=== PATIENT | male | born 1950 | race Caucasian/White ===

== ENCOUNTER 2018-01-09 16:57 | Inpatient (IN) | payer MEDICARE, MEDICAID ==
[2018-01-09 17:19] LABS: % EOSINOPHILS 1.4 % (0.0-5.0); % LYMPHOCYTES 22.2 % (20.0-50.0); % MONOCYTES 5.1 % (2.0-10.0); % NEUTROPHILS 71.3 % (40.0-80.0); EOSINOPHILE ABSOLUTE 0.1 Th/cmm (0.1-0.4); HEMATOCRIT 38.7 % (41.0-60); LYMPHOCYTE ABSOLUTE 1.4 Th/cmm (1.5-3.0); MEAN CELL VOLUME 88.3 fl (80-99); MEAN CORPUSCULAR HEMOGLOBIN 29.7 pg (27.0-31.0); MEAN CORPUSCULAR HGB CONC 33.7 pg (28.0-36.0); MEAN PLATELET VOLUME 7.5 fl; MONOCYTE ABSOLUTE 0.3 Th/cmm (0.3-1.0); NEUTROPHILE ABSOLUTE 4.7 Th/cmm (1.8-8.0); PLATELET COUNT 212 Th/cmm (150-400); RED BLOOD COUNT 4.39 Mil/cmm (3.80-5.80); RED CELL DISTRIBUTION WIDTH 13.8 % (11.5-20.0); WHITE BLOOD COUNT 6.5 Th/cmm (4.8-10.8)
[2018-01-09 17:37] LABS: ALKALINE PHOSPHATASE 41 U/L (34-104); ANION GAP 8.9 (7.0-16.0); BILIRUBIN,TOTAL 0.2 mg/dL (0.3-1.0); BUN - UREA NITROGEN 16 mg/dL (7-25); CALCIUM SERUM 9.5 mg/dL (8.6-10.3); CARBON DIOXIDE 29.6 mEq/L (21.0-31.0); CHLORIDE 96 mEq/L (98-107); CREATININE - SERUM 0.7 mg/dL (0.7-1.3); GFR AFRICAN-AMERICAN > 60.0 ml/min (>90); GFR NON AFRICAN-AMERICAN > 60.0 ml/min; GLUCOSE 86 mg/dL (70-105); MAGNESIUM 2.1 mg/dL (1.9-2.7); PHOSPHOROUS 3.8 mg/dL (2.5-5.0); POTASSIUM SERUM 4.5 mEq/L (3.5-5.1); SGOT 23 U/L (13-39); SGPT/ALT 14 U/L (7-52); SODIUM SERUM 130 mEq/L (136-145); TOTAL PROTEIN,SERUM 7.9 gm/dL (6.0-8.3)
--- NOTE | 2018-01-09 18:29 | ED Physician Chart ---
ED Chief Complaint/HPI - Patient Information Date Seen:: 01/09/18 Time Seen:: 17:01 Chief Complaint:: increased agitation & hallucinations History of Present Illness:: increased agitation & hallucinations Allergies:: Allergies Allergy/AdvReac Type Severity Reaction Status Date / Time No Known Allergies Allergy Verified 12/29/15 15:28 Vitals:: Vital Signs - 8 hr 01/09/18 17:01 Temp 98.0 F HR 59 RR 19 BP 136/85 O2 Sat % 97 Historian:: Medical Records Review:: Nurse's Note Reviewed, Transfer documents Reviewed ED Review of Systems - Review of Systems General/Constitutional: No fever, No chills, No weight loss, No weakness, No diaphoresis, No edema, No loss of appetite Skin: No skin lesions, No rash, No bruising Head: No headache, No light-headedness Eyes: No loss of vision, No pain, No diplopia ENT: No earache, No nasal drainage, No sore throat, No tinnitus Neck: No neck pain, No swelling, No thyromegaly, No stiffness, No mass noted Cardio Vascular: No chest pain, No palpitations, No PND, No orthopnea, No edema Pulmonary: No SOB, No cough, No sputum, No wheezing GI: No nausea, No vomiting, No diarrhea, No pain, No melena, No hematochezia, No constipation, No hematemesis G/U: No dysuria, No frequency, No hematuria Musculoskeletal: No bone or joint pain, No back pain, No muscle pain Endocrine: No polyuria, No polydipsia Psychiatric: Other (increased agitation and hallucinations) Hematopoietic: No bruising, No lymphadenopathy Allergic/Immuno: No urticaria, No angioedema Neurological: No syncope, No focal symptoms, No weakness, No paresthesia, No headache, No seizure, No dizziness, No confusion, No vertigo ED Past Medical History - Past Medical History Obtainable: No Past Medical History: Asthma/COPD, PUD/GERD, Other (parkinson's; chronic viral hepatitis) Social History: Other (alcohol abuse) Psychiatricy History: Depression, Schizophrenia Family Medical History - Family Member Mother History Unknown: Yes ED Physical Exam - Physical Examination General/Constitutional: Awake, Well-developed, well-nourished, Alert, Ambulatory Other Gen/Cons comments:: irritated at everything. increased agitation. swearing and raising voice. Head: Atraumatic Eyes: Lids, conjuctiva normal, PERRL, EOMI Skin: Nl inspection, No rash, No skin lesions, No ecchymosis, Well hydrated, No lymphadenopathy ENMT: External ears, nose nl, Nasal exam nl Neck: Nontender, Full ROM w/o pain, No JVD, No nuchal rigidity, No bruit, No mass, No stridor Respiratory: Nl effort/Exclusion, Clear to Auscultation, No Wheeze/Rhonchi/Rales Cardio Vascular: RRR, No murmur, gallop, rubs, NL S1 S2 GI: No tenderness/rebounding/guarding, No organomegaly, No hernia, Normal BS's, Nondistended, No mass/bruits, No McBurney tenderness : No CVA tenderness Extremities: No tenderness or effusion, Full ROM, normal strength in all extremities, No edema, Normal digits & nails Neuro/Psych: Alert/oriented, Normal sensory exam, Normal motor strength, Normal gait, No focal deficits Other Neuro/Psych comments:: increased agitation. irritated at everything. raising voice. Misc: Normal back, No paraspinal tenderness ED Labs/Radiology/EKG Results - Lab Results Results: Laboratory Tests 01/09/18 01/09/18 17:12 17:12 WBC 6.5 RBC 4.39 Hgb 13.0 Hct 38.7 L MCV 88.3 MCH 29.7 MCHC Differential 33.7 RDW 13.8 Plt Count 212 MPV 7.5 Neutrophils % 71.3 Lymphocytes % 22.2 Monocytes % 5.1 Eosinophils % 1.4 Basophils % 0.0 Sodium 130 L Potassium 4.5 Chloride 96 L Carbon Dioxide 29.6 Anion Gap 8.9 BUN 16 Creatinine 0.7 Est GFR ( Amer) > 60.0 Est GFR (Non-Af Amer) > 60.0 BUN/Creatinine Ratio 22.9 Glucose 86 Calcium 9.5 Phosphorus 3.8 Magnesium 2.1 Total Bilirubin 0.2 L AST 23 ALT 14 Alkaline Phosphatase 41 Total Protein 7.9 Albumin 4.0 L Globulin 3.9 Albumin/Globulin Ratio 1.0 ED Assessment - Assessment General Assessment: PATIENT IS CLEARED MEDICALLY FOR THE GEROPSYCH UNIT EXCEPT FOR THE FACT THAT WE NEED TO COLLECT A URINE ON HIM. ED Septic Shock - . Is Septic Shock (SBP<90, OR Lactate>4 mmol\L) present?: No - <6hrs of presentation: Vital Signs: Vital Signs - 8 hr 01/09/18 17:01 Temp 98.0 F HR 59 RR 19 BP 136/85 O2 Sat % 97 ED Reassessment (Disposition) - Reassessment Reassessment Condition:: Unchanged - Patient Disposition Discharge/Transfer:: Acute Care w/in this hosp Admitted to:: [facility] Admitting Medical Physician:: Lesvia Ventura Admitting Psych Physician:: Flora Iverson Time:: 18:35 Condition at Disposition:: Stable, Unchanged
[2018-01-09] MEDS ORDERED: Magnesium Hydroxide (MOM) 30 mL UDC PO PRN (19:23)
[2018-01-09 19:34] LABS: URINE SOURCE CLEAN C
[2018-01-09 19:41] LABS: URINE CLARITY CLEAR (CLEAR); URINE COLOR YELLOW
[2018-01-09 19:42] LABS: URINE BILIRUBIN NEGATIVE (NEGATIVE); URINE GLUCOSE (UA) NEGATIVE (NEGATIVE)
[2018-01-09 19:43] LABS: URINE BLOOD NEGATIVE (NEGATIVE); URINE KETONE NEGATIVE (NEGATIVE); URINE LEUKOCYTE ESTERASE NEGATIVE (NEGATIVE); URINE MICROSCOPIC INDICATED? YES; URINE NITRATE NEGATIVE (NEGATIVE); URINE PROTEIN NEGATIVE (NEGATIVE); URINE UROBILINOGEN 0.2 E.U./dL (0.2 - 1.0)
[2018-01-09 19:45] LABS: URINE BACTERIA OCCASIONAL /hpf (NONE SEEN); URINE EPITHELIAL CELLS FEW /lpf (FEW); URINE RBC 0-2 /hpf (0-5)
[2018-01-09 19:57] LABS: AMPHETAMINE URINE NEGATIVE (NEGATIVE); BARBITURATES URINE NEGATIVE (NEGATIVE); BENZODIAZEPINES QUAL URINE NEGATIVE (NEGATIVE); CANNABINOID THC NEGATIVE (NEGATIVE); COCAINE METABOLITE QUAL URINE NEGATIVE (NEGATIVE); METHADONE URINE NEGATIVE (NEGATIVE); METHAMPHETAMINES QUAL URINE NEGATIVE (NEGATIVE); OPIATES (MORPHINE) QUAL. URINE NEGATIVE (NEGATIVE); PHENCYCLIDINE (PCP) URINE NEGATIVE (NEGATIVE); TRICYCLICS (TCA) QUAL. URINE NEGATIVE (NEGATIVE)
[2018-01-09] MEDS ORDERED: Non-Formulary Item 1 EA (Melatonin [Melatonin] 3 MG) PO SCH (21:00)
[2018-01-09 21:58] VITALS: BP 145/76
--- NOTE | 2018-01-09 23:10 | History & Physical ---
ADMIT DATE: 01/09/2018 HISTORY OF PRESENT ILLNESS: The patient is a 67-year-old male with long history of hypertension, degenerative joint disease, and psychosis, admitted to [facility] under Dr. Iverson's service. The patient denies any chest pain, shortness of breath, nausea, vomiting, fever, chills. PAST MEDICAL HISTORY: Significant for portal hypertension, borderline hypertension, degenerative joint disease, and psychosis. PAST SURGICAL HISTORY: No recent surgery. ALLERGIES: None. MEDICATIONS: Follow admission reconciliation. SOCIAL HISTORY: No smoking, no alcohol, no drug. FAMILY HISTORY: Noncontributory. REVIEW OF SYSTEMS: RENAL SYSTEM: No history of renal disorder. CARDIOVASCULAR SYSTEM: He denies any diabetes or thyroid problem. GASTROINTESTINAL SYSTEM: No upper or lower gastrointestinal bleed. NEUROLOGICAL SYSTEM: No seizure disorder. MUSCULOSKELETAL SYSTEM: No muscular dystrophy. HEMATOLOGIC SYSTEM: No bleeding tendencies. RESPIRATORY SYSTEM: No asthma. GENITOURINARY: No dysuria or hematuria. PHYSICAL EXAMINATION: GENERAL: He is awake, alert, oriented. VITAL SIGNS: Temperature 98, heart rate 59, and blood pressure 145/76. HEENT: Normocephalic. Pupils reacting to light and accommodation. Sclerae clear. NECK: Supple. Negative for lymphadenopathy, JVD, or bruit. CHEST: Entry of air bilaterally normal. No rhonchi or wheezing. HEART: S1, S2 normal. No murmur or gallop rhythm. ABDOMEN: Soft, bowel sounds positive. EXTREMITIES: No edema. BACK: No vertebrae tenderness. SKIN: Intact. NEUROLOGIC: He is awake, alert, oriented. No focal motor or sensory deficits. Cranial nerves II through XII is intact. LABORATORY DATA: White blood 6.5, hemoglobin 13, hematocrit 38.7, and platelet is 212. Sodium 130, potassium 4.5, BUN 16, and creatinine 0.7. ASSESSMENT: 1. Hypertension. 2. Hyponatremia. 3. Degenerative joint disease. 4. Dementia. PLAN: The patient admitted to the hospital under Dr. Iverson's service, prompted this hospitalization is psychosis. Medical problems addressed at discharge are hypertension and degenerative joint disease. The patient is medically stable for activity. Thank you Dr. Iverson for asking me to see your patient. The patient is a full code. [facility]# [id number]
[2018-01-10] MEDS: Multivitamin w/ Minerals Tab PO SCH (09:02)
[2018-01-10] MEDS: Vitamin B Complex w/Vitamin C Tab PO SCH (09:02)
--- NOTE | 2018-01-10 13:42 | Psychiatric Evaluation ---
DATE OF SERVICE: 01/09/2018 IDENTIFYING DATA: The patient is a 67-year-old resident of [facility]. Information was obtained by directly interviewing the patient as well as reviewing the admission papers and they are reliable. JUSTIFICATION FOR HOSPITALIZATION: The patient is admitted here in view of his acute psychosis, agitation, and aggressive behavior. CHIEF COMPLAINT: "Hello." HISTORY OF PRESENT ILLNESS: This is one of multiple psychiatric hospitalizations for this patient who was hospitalized here in 2016. The patient has a history of chronic mental illness. The patient at this time is noted to be screaming for 1 minute and the next minute he is saying hello and very hostile and pulling the sheet on his face and then wanted to lie down. The patient's sleep is noted to be poor, appetite is also noted to be poor prior to the hospitalization. PAST PSYCHIATRIC HISTORY: The patient is reported to have been hospitalized on multiple occasions and has been diagnosed with schizophrenia of chronic paranoid type and alcohol abuse. MEDICAL HISTORY: Requested to be done by Dr. Ventura. PHYSICAL EXAMINATION: Requested to be done by Dr. Ventura. SOCIAL HISTORY: Resident of a senior living facility. SUBSTANCE ABUSE HISTORY: The patient has a history of alcohol problems in the past. LEGAL PROBLEMS: None at this time. STRENGTH AND ASSETS: The patient is motivated. MENTAL STATUS EXAMINATION: The patient is a 67-year-old, looking his stated age, superficially cooperative. Eye contact is poor. Mood is noted to be irritable. Affect is constricted. The patient's insight and judgment are noted to be very much impaired. The patient has paranoia and is responding to internal stimuli. The patient is reported to have been very aggressive and agitated and could not be redirected. The patient is alert and aware that he is in the hospital. The patient does not believe that he needs to be on the medications. The patient has no insight into his illness. DIAGNOSES: AXIS IA: Schizophrenia, chronic paranoid type. AXIS IB: Alcohol abuse. AXIS II: None. AXIS III: As per Dr. Ventura. IMMEDIATE TREATMENT PLAN: The patient is going to be observed on inpatient unit, provided with supportive psychotherapy. The patient is going to be closely monitored. Once stabilized, the patient is going to be discharged. The patient is going to be continued with the current medication such as Seroquel and the patient is going to be added with Depakote. He is going to be followed up with the supportive therapy. Once stabilized, the patient is going to be discharged to self to be followed up on an outpatient basis. ESTIMATED LENGTH OF STAY: 5-7 days. DISCHARGE CRITERIA: No longer a threat to self or others and be able to cope up with the stress. [facility]# [id number]
--- NOTE | 2018-01-10 17:08 | General Progress Note ---
Subjective - Review of Systems Service Date: 01/10/18 Subjective: resting comfortably no distress Objective - Results Result Diagrams: 01/09/18 17:12 01/09/18 17:12 Recent Labs: Laboratory Last Values WBC 6.5 Th/cmm (4.8-10.8) 01/09/18 17:12 RBC 4.39 Mil/cmm (3.80-5.80) 01/09/18 17:12 Hgb 13.0 gm/dL (12-16) 01/09/18 17:12 Hct 38.7 % (41.0-60) L 01/09/18 17:12 MCV 88.3 fl (80-99) 01/09/18 17:12 MCH 29.7 pg (27.0-31.0) 01/09/18 17:12 MCHC Differential 33.7 pg (28.0-36.0) 01/09/18 17:12 RDW 13.8 % (11.5-20.0) 01/09/18 17:12 Plt Count 212 Th/cmm (150-400) 01/09/18 17:12 MPV 7.5 fl 01/09/18 17:12 Neutrophils % 71.3 % (40.0-80.0) 01/09/18 17:12 Lymphocytes % 22.2 % (20.0-50.0) 01/09/18 17:12 Monocytes % 5.1 % (2.0-10.0) 01/09/18 17:12 Eosinophils % 1.4 % (0.0-5.0) 01/09/18 17:12 Basophils % 0.0 % (0.0-2.0) 01/09/18 17:12 Sodium 130 mEq/L (136-145) L 01/09/18 17:12 Potassium 4.5 mEq/L (3.5-5.1) 01/09/18 17:12 Chloride 96 mEq/L (98-107) L 01/09/18 17:12 Carbon Dioxide 29.6 mEq/L (21.0-31.0) 01/09/18 17:12 Anion Gap 8.9 (7.0-16.0) 01/09/18 17:12 BUN 16 mg/dL (7-25) 01/09/18 17:12 Creatinine 0.7 mg/dL (0.7-1.3) 01/09/18 17:12 Est GFR ( Amer) > 60.0 ml/min (>90) 01/09/18 17:12 Est GFR (Non-Af Amer) > 60.0 ml/min 01/09/18 17:12 BUN/Creatinine Ratio 22.9 01/09/18 17:12 Glucose 86 mg/dL (70-105) 01/09/18 17:12 Calcium 9.5 mg/dL (8.6-10.3) 01/09/18 17:12 Phosphorus 3.8 mg/dL (2.5-5.0) 01/09/18 17:12 Magnesium 2.1 mg/dL (1.9-2.7) 01/09/18 17:12 Total Bilirubin 0.2 mg/dL (0.3-1.0) L 01/09/18 17:12 AST 23 U/L (13-39) 01/09/18 17:12 ALT 14 U/L (7-52) 01/09/18 17:12 Alkaline Phosphatase 41 U/L (34-104) 01/09/18 17:12 Total Protein 7.9 gm/dL (6.0-8.3) 01/09/18 17:12 Albumin 4.0 gm/dL (4.2-5.5) L 01/09/18 17:12 Globulin 3.9 gm/dL 01/09/18 17:12 Albumin/Globulin Ratio 1.0 (1.0-1.8) 01/09/18 17:12 Urine Source CLEAN C 01/09/18 19:10 Urine Color YELLOW 01/09/18 19:10 Urine Clarity CLEAR (CLEAR) 01/09/18 19:10 Urine pH 7.0 (4.6 - 8.0) 01/09/18 19:10 Ur Specific [place] 1.015 (1.005-1.030) 01/09/18 19:10 Urine Protein NEGATIVE mg/dL (NEGATIVE) 01/09/18 19:10 Urine Glucose (UA) NEGATIVE mg/dL (NEGATIVE) 01/09/18 19:10 Urine Ketones NEGATIVE mg/dL (NEGATIVE) 01/09/18 19:10 Urine Blood NEGATIVE (NEGATIVE) 01/09/18 19:10 Urine Nitrate NEGATIVE (NEGATIVE) 01/09/18 19:10 Urine Bilirubin NEGATIVE (NEGATIVE) 01/09/18 19:10 Urine Urobilinogen 0.2 E.U./dL (0.2 - 1.0) 01/09/18 19:10 Ur Leukocyte Esterase NEGATIVE (NEGATIVE) 01/09/18 19:10 Urine RBC 0-2 /hpf (0-5) H 01/09/18 19:10 Urine WBC 2-5 /hpf (0-5) 01/09/18 19:10 Ur Epithelial Cells FEW /lpf (FEW) 01/09/18 19:10 Urine Bacteria OCCASIONAL /hpf (NONE SEEN) 01/09/18 19:10 Urine Mucus FEW /lpf (FEW) 01/09/18 19:10 Urine Opiates Screen NEGATIVE (NEGATIVE) 01/09/18 19:10 Urine Methadone Screen NEGATIVE (NEGATIVE) 01/09/18 19:10 Ur Barbiturates Screen NEGATIVE (NEGATIVE) 01/09/18 19:10 Ur Tricyclics Screen NEGATIVE (NEGATIVE) 01/09/18 19:10 Ur Phencyclidine Scrn NEGATIVE (NEGATIVE) 01/09/18 19:10 Amphetamines Screen NEGATIVE (NEGATIVE) 01/09/18 19:10 U Methamphetamines Scrn NEGATIVE (NEGATIVE) 01/09/18 19:10 U Benzodiazepines Scrn NEGATIVE (NEGATIVE) 01/09/18 19:10 U Cocaine Metab Screen NEGATIVE (NEGATIVE) 01/09/18 19:10 U Cannabinoids Screen NEGATIVE (NEGATIVE) 01/09/18 19:10 - Physical Exam Vitals and I&O: Vital Signs Temp 99.0 F 01/10/18 14:00 Pulse 73 01/10/18 14:00 Resp 19 01/10/18 14:00 BP 122/61 01/10/18 14:00 Pulse Ox 96 01/10/18 14:00 Intake & Output 01/09/18 01/10/18 01/10/18 18:59 06:59 18:59 Intake Total 540 Output Total 500 Balance 40 Weight (lbs) 77.111 kg 77.111 kg Intake: Oral 540 Output: Urine 500 Other: # Voids 2 Weight Source Estimated Patient stated Active Medications: Current Medications Acetaminophen (Tylenol) 650 mg PO Q4HR PRN PRN Reason: Pain Stop: 03/10/18 19:22 Docusate Sodium (Colace) 100 mg PO BID HEATHER Stop: 03/11/18 08:59 Last Admin: 01/10/18 16:52 Dose: 100 mg Famotidine (Pepcid) 20 mg PO BID HEATHER Stop: 03/11/18 08:59 Last Admin: 01/10/18 16:52 Dose: 20 mg Lorazepam (Ativan) 0.5 mg PO Q4H PRN; Protocol PRN Reason: Anxiety Stop: 03/10/18 22:40 Magnesium Hydroxide (Milk Of Magnesia) 30 ml PO DAILY PRN PRN Reason: Constipation Stop: 03/10/18 19:22 Vitamin B Complex/Vit C/Folic Acid (Vitamin B Complex W/Vitamin C) 1 tab PO DAILY HEATHER Stop: 03/11/18 08:59 Last Admin: 01/10/18 09:02 Dose: 1 tab Zolpidem Tartrate (Ambien) 5 mg PO HS PRN PRN Reason: Insomnia Stop: 03/10/18 22:40 General: No acute distress HEENT: Atraumatic, PERRLA Neck: Supple, JVD, Thyromegaly Cardiovascular: Regular rate, Normal S1, Normal S2 Lungs: Clear to auscultation Abdomen: Bowel sounds, Soft - Procedures Procedures: Procedures Procedure Code Date GROUP PSYCHOTHERAPY 56129 04/26/15 GROUP PSYCHOTHERAPY GZHZZZZ 04/26/15 Assessment/Plan - Problem List Patient Problems: All Active Problems AGGITATION AND UNCOOPERATIVE WITH CARE (Acute) - Assessment Assessment: 1.HTN. 2.DJD. 3.CONSTIPATION. 4.DEMENTIA. - Plan Plan: CONTINUE CURRENT TREATMENT
[2018-01-11] MEDS: Vitamin B Complex w/Vitamin C Tab PO SCH (09:14)
[2018-01-11] MEDS: Multivitamin w/ Minerals Tab PO SCH (09:14)
--- NOTE | 2018-01-11 20:31 | General Progress Note ---
Subjective - Review of Systems Service Date: 01/11/18 Subjective: resting comfortably no distress Objective - Results Result Diagrams: 01/09/18 17:12 01/09/18 17:12 Recent Labs: Laboratory Last Values WBC 6.5 Th/cmm (4.8-10.8) 01/09/18 17:12 RBC 4.39 Mil/cmm (3.80-5.80) 01/09/18 17:12 Hgb 13.0 gm/dL (12-16) 01/09/18 17:12 Hct 38.7 % (41.0-60) L 01/09/18 17:12 MCV 88.3 fl (80-99) 01/09/18 17:12 MCH 29.7 pg (27.0-31.0) 01/09/18 17:12 MCHC Differential 33.7 pg (28.0-36.0) 01/09/18 17:12 RDW 13.8 % (11.5-20.0) 01/09/18 17:12 Plt Count 212 Th/cmm (150-400) 01/09/18 17:12 MPV 7.5 fl 01/09/18 17:12 Neutrophils % 71.3 % (40.0-80.0) 01/09/18 17:12 Lymphocytes % 22.2 % (20.0-50.0) 01/09/18 17:12 Monocytes % 5.1 % (2.0-10.0) 01/09/18 17:12 Eosinophils % 1.4 % (0.0-5.0) 01/09/18 17:12 Basophils % 0.0 % (0.0-2.0) 01/09/18 17:12 Sodium 130 mEq/L (136-145) L 01/09/18 17:12 Potassium 4.5 mEq/L (3.5-5.1) 01/09/18 17:12 Chloride 96 mEq/L (98-107) L 01/09/18 17:12 Carbon Dioxide 29.6 mEq/L (21.0-31.0) 01/09/18 17:12 Anion Gap 8.9 (7.0-16.0) 01/09/18 17:12 BUN 16 mg/dL (7-25) 01/09/18 17:12 Creatinine 0.7 mg/dL (0.7-1.3) 01/09/18 17:12 Est GFR ( Amer) > 60.0 ml/min (>90) 01/09/18 17:12 Est GFR (Non-Af Amer) > 60.0 ml/min 01/09/18 17:12 BUN/Creatinine Ratio 22.9 01/09/18 17:12 Glucose 86 mg/dL (70-105) 01/09/18 17:12 Calcium 9.5 mg/dL (8.6-10.3) 01/09/18 17:12 Phosphorus 3.8 mg/dL (2.5-5.0) 01/09/18 17:12 Magnesium 2.1 mg/dL (1.9-2.7) 01/09/18 17:12 Total Bilirubin 0.2 mg/dL (0.3-1.0) L 01/09/18 17:12 AST 23 U/L (13-39) 01/09/18 17:12 ALT 14 U/L (7-52) 01/09/18 17:12 Alkaline Phosphatase 41 U/L (34-104) 01/09/18 17:12 Total Protein 7.9 gm/dL (6.0-8.3) 01/09/18 17:12 Albumin 4.0 gm/dL (4.2-5.5) L 01/09/18 17:12 Globulin 3.9 gm/dL 01/09/18 17:12 Albumin/Globulin Ratio 1.0 (1.0-1.8) 01/09/18 17:12 Urine Source CLEAN C 01/09/18 19:10 Urine Color YELLOW 01/09/18 19:10 Urine Clarity CLEAR (CLEAR) 01/09/18 19:10 Urine pH 7.0 (4.6 - 8.0) 01/09/18 19:10 Ur Specific [place] 1.015 (1.005-1.030) 01/09/18 19:10 Urine Protein NEGATIVE mg/dL (NEGATIVE) 01/09/18 19:10 Urine Glucose (UA) NEGATIVE mg/dL (NEGATIVE) 01/09/18 19:10 Urine Ketones NEGATIVE mg/dL (NEGATIVE) 01/09/18 19:10 Urine Blood NEGATIVE (NEGATIVE) 01/09/18 19:10 Urine Nitrate NEGATIVE (NEGATIVE) 01/09/18 19:10 Urine Bilirubin NEGATIVE (NEGATIVE) 01/09/18 19:10 Urine Urobilinogen 0.2 E.U./dL (0.2 - 1.0) 01/09/18 19:10 Ur Leukocyte Esterase NEGATIVE (NEGATIVE) 01/09/18 19:10 Urine RBC 0-2 /hpf (0-5) H 01/09/18 19:10 Urine WBC 2-5 /hpf (0-5) 01/09/18 19:10 Ur Epithelial Cells FEW /lpf (FEW) 01/09/18 19:10 Urine Bacteria OCCASIONAL /hpf (NONE SEEN) 01/09/18 19:10 Urine Mucus FEW /lpf (FEW) 01/09/18 19:10 Urine Opiates Screen NEGATIVE (NEGATIVE) 01/09/18 19:10 Urine Methadone Screen NEGATIVE (NEGATIVE) 01/09/18 19:10 Ur Barbiturates Screen NEGATIVE (NEGATIVE) 01/09/18 19:10 Ur Tricyclics Screen NEGATIVE (NEGATIVE) 01/09/18 19:10 Ur Phencyclidine Scrn NEGATIVE (NEGATIVE) 01/09/18 19:10 Amphetamines Screen NEGATIVE (NEGATIVE) 01/09/18 19:10 U Methamphetamines Scrn NEGATIVE (NEGATIVE) 01/09/18 19:10 U Benzodiazepines Scrn NEGATIVE (NEGATIVE) 01/09/18 19:10 U Cocaine Metab Screen NEGATIVE (NEGATIVE) 01/09/18 19:10 U Cannabinoids Screen NEGATIVE (NEGATIVE) 01/09/18 19:10 - Physical Exam Vitals and I&O: Vital Signs Temp 98.7 F 01/11/18 20:10 Pulse 66 01/11/18 20:10 Resp 18 01/11/18 20:10 BP 119/76 01/11/18 20:10 Pulse Ox 98 01/11/18 20:10 Intake & Output 01/11/18 01/11/18 01/12/18 06:59 18:59 06:59 Intake Total 1600 240 Balance 1600 240 Intake: Oral 1600 240 Other: # Voids 3 2 # Bowel Movements 0 Active Medications: Current Medications Acetaminophen (Tylenol) 650 mg PO Q4HR PRN PRN Reason: Pain Stop: 03/10/18 19:22 Last Admin: 01/10/18 20:18 Dose: 650 mg Docusate Sodium (Colace) 100 mg PO BID HEATHER Stop: 03/11/18 08:59 Last Admin: 01/11/18 18:34 Dose: Not Given Famotidine (Pepcid) 20 mg PO BID HEATHER Stop: 03/11/18 08:59 Last Admin: 01/11/18 18:34 Dose: Not Given Lorazepam (Ativan) 0.5 mg PO Q4H PRN; Protocol PRN Reason: Anxiety Stop: 03/10/18 22:40 Magnesium Hydroxide (Milk Of Magnesia) 30 ml PO DAILY PRN PRN Reason: Constipation Stop: 03/10/18 19:22 Olanzapine (Zyprexa) 5 mg PO HS HEATHER; Protocol Stop: 03/12/18 20:59 Vitamin B Complex/Vit C/Folic Acid (Vitamin B Complex W/Vitamin C) 1 tab PO DAILY HEATHER Stop: 03/11/18 08:59 Last Admin: 01/11/18 09:14 Dose: 1 tab Zolpidem Tartrate (Ambien) 5 mg PO HS PRN PRN Reason: Insomnia Stop: 03/10/18 22:40 General: No acute distress HEENT: Atraumatic, PERRLA Neck: Supple, JVD, Thyromegaly Cardiovascular: Regular rate, Normal S1, Normal S2 Lungs: Clear to auscultation Abdomen: Bowel sounds, Soft - Procedures Procedures: Procedures Procedure Code Date GROUP PSYCHOTHERAPY 88965 04/26/15 GROUP PSYCHOTHERAPY GZHZZZZ 04/26/15 Assessment/Plan - Problem List Patient Problems: All Active Problems AGGITATION AND UNCOOPERATIVE WITH CARE (Acute) - Assessment Assessment: 1.HTN. 2.DJD. 3.CONSTIPATION. 4.DEMENTIA. - Plan Plan: CONTINUE CURRENT TREATMENT
--- NOTE | 2018-01-12 03:01 | Progress Notes ---
DATE: 01/11/2018 SUBJECTIVE: Staff was spoken to. The patient is interviewed. Mood is noted to be irritable. Affect is constricted. Insight and judgment are noted to be still impaired. The patient is getting easily frustrated. The patient is screaming and yelling when the staff are asking him for anything. The patient has no insight into his illness. ASSESSMENT: The patient is still impulsive and psychotic. PLAN: To continue the patient with low dose of the Zyprexa, which is going to be given at 5 mg and follow up with the supportive therapy. The patient is not ready to be discharged to a lower level of care in view of his psychosis and impulsivity. JOB# [id number]
[2018-01-12] MEDS: Vitamin B Complex w/Vitamin C Tab PO SCH (08:56)
[2018-01-12] MEDS: Multivitamin w/ Minerals Tab PO SCH (08:56)
--- NOTE | 2018-01-12 18:02 | Progress Notes ---
DATE: 01/12/2018 SUBJECTIVE: Staff was spoken to. The patient is interviewed. Mood is noted to be dysphoric. Coping skills are noted to be very poor. The patient is refusing to take the vitamins. The patient is keeping to himself and verbalizations are noted to be very minimal. The patient is getting easily frustrated. ASSESSMENT: The patient is still psychotic. PLAN: To continue the patient with the current medications and followup. JOB# [id number]
--- NOTE | 2018-01-12 19:53 | Internal Medicine Prog Note ---
Internal Medicine Subjective - Subjective Service Date: 01/12/18 Patient seen and examined:: with staff Patient is:: awake, verbal, confused Per staff patient has:: no adverse event Internal Medicine Objective - Results Result Diagrams: 01/09/18 17:12 01/09/18 17:12 Recent Labs: Laboratory Last Values WBC 6.5 Th/cmm (4.8-10.8) 01/09/18 17:12 RBC 4.39 Mil/cmm (3.80-5.80) 01/09/18 17:12 Hgb 13.0 gm/dL (12-16) 01/09/18 17:12 Hct 38.7 % (41.0-60) L 01/09/18 17:12 MCV 88.3 fl (80-99) 01/09/18 17:12 MCH 29.7 pg (27.0-31.0) 01/09/18 17:12 MCHC Differential 33.7 pg (28.0-36.0) 01/09/18 17:12 RDW 13.8 % (11.5-20.0) 01/09/18 17:12 Plt Count 212 Th/cmm (150-400) 01/09/18 17:12 MPV 7.5 fl 01/09/18 17:12 Neutrophils % 71.3 % (40.0-80.0) 01/09/18 17:12 Lymphocytes % 22.2 % (20.0-50.0) 01/09/18 17:12 Monocytes % 5.1 % (2.0-10.0) 01/09/18 17:12 Eosinophils % 1.4 % (0.0-5.0) 01/09/18 17:12 Basophils % 0.0 % (0.0-2.0) 01/09/18 17:12 Sodium 130 mEq/L (136-145) L 01/09/18 17:12 Potassium 4.5 mEq/L (3.5-5.1) 01/09/18 17:12 Chloride 96 mEq/L (98-107) L 01/09/18 17:12 Carbon Dioxide 29.6 mEq/L (21.0-31.0) 01/09/18 17:12 Anion Gap 8.9 (7.0-16.0) 01/09/18 17:12 BUN 16 mg/dL (7-25) 01/09/18 17:12 Creatinine 0.7 mg/dL (0.7-1.3) 01/09/18 17:12 Est GFR ( Amer) > 60.0 ml/min (>90) 01/09/18 17:12 Est GFR (Non-Af Amer) > 60.0 ml/min 01/09/18 17:12 BUN/Creatinine Ratio 22.9 01/09/18 17:12 Glucose 86 mg/dL (70-105) 01/09/18 17:12 Calcium 9.5 mg/dL (8.6-10.3) 01/09/18 17:12 Phosphorus 3.8 mg/dL (2.5-5.0) 01/09/18 17:12 Magnesium 2.1 mg/dL (1.9-2.7) 01/09/18 17:12 Total Bilirubin 0.2 mg/dL (0.3-1.0) L 01/09/18 17:12 AST 23 U/L (13-39) 01/09/18 17:12 ALT 14 U/L (7-52) 01/09/18 17:12 Alkaline Phosphatase 41 U/L (34-104) 01/09/18 17:12 Total Protein 7.9 gm/dL (6.0-8.3) 01/09/18 17:12 Albumin 4.0 gm/dL (4.2-5.5) L 01/09/18 17:12 Globulin 3.9 gm/dL 01/09/18 17:12 Albumin/Globulin Ratio 1.0 (1.0-1.8) 01/09/18 17:12 Urine Source CLEAN C 01/09/18 19:10 Urine Color YELLOW 01/09/18 19:10 Urine Clarity CLEAR (CLEAR) 01/09/18 19:10 Urine pH 7.0 (4.6 - 8.0) 01/09/18 19:10 Ur Specific [place] 1.015 (1.005-1.030) 01/09/18 19:10 Urine Protein NEGATIVE mg/dL (NEGATIVE) 01/09/18 19:10 Urine Glucose (UA) NEGATIVE mg/dL (NEGATIVE) 01/09/18 19:10 Urine Ketones NEGATIVE mg/dL (NEGATIVE) 01/09/18 19:10 Urine Blood NEGATIVE (NEGATIVE) 01/09/18 19:10 Urine Nitrate NEGATIVE (NEGATIVE) 01/09/18 19:10 Urine Bilirubin NEGATIVE (NEGATIVE) 01/09/18 19:10 Urine Urobilinogen 0.2 E.U./dL (0.2 - 1.0) 01/09/18 19:10 Ur Leukocyte Esterase NEGATIVE (NEGATIVE) 01/09/18 19:10 Urine RBC 0-2 /hpf (0-5) H 01/09/18 19:10 Urine WBC 2-5 /hpf (0-5) 01/09/18 19:10 Ur Epithelial Cells FEW /lpf (FEW) 01/09/18 19:10 Urine Bacteria OCCASIONAL /hpf (NONE SEEN) 01/09/18 19:10 Urine Mucus FEW /lpf (FEW) 01/09/18 19:10 Urine Opiates Screen NEGATIVE (NEGATIVE) 01/09/18 19:10 Urine Methadone Screen NEGATIVE (NEGATIVE) 01/09/18 19:10 Ur Barbiturates Screen NEGATIVE (NEGATIVE) 01/09/18 19:10 Ur Tricyclics Screen NEGATIVE (NEGATIVE) 01/09/18 19:10 Ur Phencyclidine Scrn NEGATIVE (NEGATIVE) 01/09/18 19:10 Amphetamines Screen NEGATIVE (NEGATIVE) 01/09/18 19:10 U Methamphetamines Scrn NEGATIVE (NEGATIVE) 01/09/18 19:10 U Benzodiazepines Scrn NEGATIVE (NEGATIVE) 01/09/18 19:10 U Cocaine Metab Screen NEGATIVE (NEGATIVE) 01/09/18 19:10 U Cannabinoids Screen NEGATIVE (NEGATIVE) 01/09/18 19:10 - Physical Exam Vitals and I&O: Vital Signs Temp 98.0 F 01/12/18 14:00 Pulse 67 01/12/18 14:00 Resp 18 01/12/18 14:00 BP 105/72 01/12/18 14:00 Pulse Ox 95 01/12/18 14:00 Intake & Output 01/12/18 01/12/18 01/13/18 06:59 18:59 06:59 Intake Total 480 1550 Balance 480 1550 Intake: Oral 480 1550 Other: # Voids 2 3 # Bowel Movements 0 Active Medications: Current Medications Acetaminophen (Tylenol) 650 mg PO Q4HR PRN PRN Reason: Pain Stop: 03/10/18 19:22 Last Admin: 01/10/18 20:18 Dose: 650 mg Docusate Sodium (Colace) 100 mg PO BID HEATHER Stop: 03/11/18 08:59 Last Admin: 01/12/18 16:57 Dose: Not Given Famotidine (Pepcid) 20 mg PO BID HEATHER Stop: 03/11/18 08:59 Last Admin: 01/12/18 16:57 Dose: Not Given Lorazepam (Ativan) 0.5 mg PO Q4H PRN; Protocol PRN Reason: Anxiety Stop: 03/10/18 22:40 Magnesium Hydroxide (Milk Of Magnesia) 30 ml PO DAILY PRN PRN Reason: Constipation Stop: 03/10/18 19:22 Olanzapine (Zyprexa) 5 mg PO HS HEATHER; Protocol Stop: 03/12/18 20:59 Last Admin: 01/11/18 21:25 Dose: 5 mg Vitamin B Complex/Vit C/Folic Acid (Vitamin B Complex W/Vitamin C) 1 tab PO DAILY HEATHER Stop: 03/11/18 08:59 Last Admin: 01/12/18 08:56 Dose: Not Given Zolpidem Tartrate (Ambien) 5 mg PO HS PRN PRN Reason: Insomnia Stop: 03/10/18 22:40 General: demented HEENT: NC/AT, PERRLA, EOMI, anicteric sclerae, throat clear Neck: Supple, No JVD, No thyromegaly, +2 carotid pulse wo bruit, No LAD Lungs: CTAB Cardiovascular: RRR, Normal S1, Normal S2, without murmur Abdomen: soft, non-tender, non-distended Extremities: clear Neurological: no change - Procedures Procedures: Procedures Procedure Code Date GROUP PSYCHOTHERAPY 73333 04/26/15 GROUP PSYCHOTHERAPY GZHZZZZ 04/26/15 Internal Medicine Assmt/Plan - Assessment Assessment: 1.HTN. 2.HYPONATREMIA. 3.DJD. 4.DEMENTIA. - Plan Plan: CONTINUE ON CURRENT MEDICATION AND DIET.
[2018-01-13] MEDS: Multivitamin w/ Minerals Tab PO SCH (09:08)
[2018-01-13] MEDS: Vitamin B Complex w/Vitamin C Tab PO SCH (09:08)
--- NOTE | 2018-01-13 13:35 | Internal Medicine Prog Note ---
Internal Medicine Subjective - Subjective Service Date: 01/13/18 Patient seen and examined:: with staff Patient is:: awake, verbal, confused Per staff patient has:: no adverse event Internal Medicine Objective - Results Result Diagrams: 01/09/18 17:12 01/09/18 17:12 Recent Labs: Laboratory Last Values WBC 6.5 Th/cmm (4.8-10.8) 01/09/18 17:12 RBC 4.39 Mil/cmm (3.80-5.80) 01/09/18 17:12 Hgb 13.0 gm/dL (12-16) 01/09/18 17:12 Hct 38.7 % (41.0-60) L 01/09/18 17:12 MCV 88.3 fl (80-99) 01/09/18 17:12 MCH 29.7 pg (27.0-31.0) 01/09/18 17:12 MCHC Differential 33.7 pg (28.0-36.0) 01/09/18 17:12 RDW 13.8 % (11.5-20.0) 01/09/18 17:12 Plt Count 212 Th/cmm (150-400) 01/09/18 17:12 MPV 7.5 fl 01/09/18 17:12 Neutrophils % 71.3 % (40.0-80.0) 01/09/18 17:12 Lymphocytes % 22.2 % (20.0-50.0) 01/09/18 17:12 Monocytes % 5.1 % (2.0-10.0) 01/09/18 17:12 Eosinophils % 1.4 % (0.0-5.0) 01/09/18 17:12 Basophils % 0.0 % (0.0-2.0) 01/09/18 17:12 Sodium 130 mEq/L (136-145) L 01/09/18 17:12 Potassium 4.5 mEq/L (3.5-5.1) 01/09/18 17:12 Chloride 96 mEq/L (98-107) L 01/09/18 17:12 Carbon Dioxide 29.6 mEq/L (21.0-31.0) 01/09/18 17:12 Anion Gap 8.9 (7.0-16.0) 01/09/18 17:12 BUN 16 mg/dL (7-25) 01/09/18 17:12 Creatinine 0.7 mg/dL (0.7-1.3) 01/09/18 17:12 Est GFR ( Amer) > 60.0 ml/min (>90) 01/09/18 17:12 Est GFR (Non-Af Amer) > 60.0 ml/min 01/09/18 17:12 BUN/Creatinine Ratio 22.9 01/09/18 17:12 Glucose 86 mg/dL (70-105) 01/09/18 17:12 Calcium 9.5 mg/dL (8.6-10.3) 01/09/18 17:12 Phosphorus 3.8 mg/dL (2.5-5.0) 01/09/18 17:12 Magnesium 2.1 mg/dL (1.9-2.7) 01/09/18 17:12 Total Bilirubin 0.2 mg/dL (0.3-1.0) L 01/09/18 17:12 AST 23 U/L (13-39) 01/09/18 17:12 ALT 14 U/L (7-52) 01/09/18 17:12 Alkaline Phosphatase 41 U/L (34-104) 01/09/18 17:12 Total Protein 7.9 gm/dL (6.0-8.3) 01/09/18 17:12 Albumin 4.0 gm/dL (4.2-5.5) L 01/09/18 17:12 Globulin 3.9 gm/dL 01/09/18 17:12 Albumin/Globulin Ratio 1.0 (1.0-1.8) 01/09/18 17:12 Urine Source CLEAN C 01/09/18 19:10 Urine Color YELLOW 01/09/18 19:10 Urine Clarity CLEAR (CLEAR) 01/09/18 19:10 Urine pH 7.0 (4.6 - 8.0) 01/09/18 19:10 Ur Specific [place] 1.015 (1.005-1.030) 01/09/18 19:10 Urine Protein NEGATIVE mg/dL (NEGATIVE) 01/09/18 19:10 Urine Glucose (UA) NEGATIVE mg/dL (NEGATIVE) 01/09/18 19:10 Urine Ketones NEGATIVE mg/dL (NEGATIVE) 01/09/18 19:10 Urine Blood NEGATIVE (NEGATIVE) 01/09/18 19:10 Urine Nitrate NEGATIVE (NEGATIVE) 01/09/18 19:10 Urine Bilirubin NEGATIVE (NEGATIVE) 01/09/18 19:10 Urine Urobilinogen 0.2 E.U./dL (0.2 - 1.0) 01/09/18 19:10 Ur Leukocyte Esterase NEGATIVE (NEGATIVE) 01/09/18 19:10 Urine RBC 0-2 /hpf (0-5) H 01/09/18 19:10 Urine WBC 2-5 /hpf (0-5) 01/09/18 19:10 Ur Epithelial Cells FEW /lpf (FEW) 01/09/18 19:10 Urine Bacteria OCCASIONAL /hpf (NONE SEEN) 01/09/18 19:10 Urine Mucus FEW /lpf (FEW) 01/09/18 19:10 Urine Opiates Screen NEGATIVE (NEGATIVE) 01/09/18 19:10 Urine Methadone Screen NEGATIVE (NEGATIVE) 01/09/18 19:10 Ur Barbiturates Screen NEGATIVE (NEGATIVE) 01/09/18 19:10 Ur Tricyclics Screen NEGATIVE (NEGATIVE) 01/09/18 19:10 Ur Phencyclidine Scrn NEGATIVE (NEGATIVE) 01/09/18 19:10 Amphetamines Screen NEGATIVE (NEGATIVE) 01/09/18 19:10 U Methamphetamines Scrn NEGATIVE (NEGATIVE) 01/09/18 19:10 U Benzodiazepines Scrn NEGATIVE (NEGATIVE) 01/09/18 19:10 U Cocaine Metab Screen NEGATIVE (NEGATIVE) 01/09/18 19:10 U Cannabinoids Screen NEGATIVE (NEGATIVE) 01/09/18 19:10 - Physical Exam Vitals and I&O: Vital Signs Temp 97.8 F 01/13/18 04:46 Pulse 76 01/13/18 04:46 Resp 20 01/13/18 04:46 BP 111/73 01/13/18 04:46 Pulse Ox 99 01/13/18 04:46 Intake & Output 01/12/18 01/13/18 01/13/18 18:59 06:59 18:59 Intake Total 1550 480 Balance 1550 480 Intake: Oral 1550 480 Other: # Voids 3 2 # Bowel Movements 0 Active Medications: Current Medications Acetaminophen (Tylenol) 650 mg PO Q4HR PRN PRN Reason: Pain Stop: 03/10/18 19:22 Last Admin: 01/10/18 20:18 Dose: 650 mg Docusate Sodium (Colace) 100 mg PO BID HEATHER Stop: 03/11/18 08:59 Last Admin: 01/13/18 09:08 Dose: 100 mg Famotidine (Pepcid) 20 mg PO BID HEATHER Stop: 03/11/18 08:59 Last Admin: 01/13/18 09:08 Dose: 20 mg Lorazepam (Ativan) 0.5 mg PO Q4H PRN; Protocol PRN Reason: Anxiety Stop: 03/10/18 22:40 Magnesium Hydroxide (Milk Of Magnesia) 30 ml PO DAILY PRN PRN Reason: Constipation Stop: 03/10/18 19:22 Olanzapine (Zyprexa) 5 mg PO HS HEATHER; Protocol Stop: 03/12/18 20:59 Last Admin: 01/12/18 20:25 Dose: 5 mg Vitamin B Complex/Vit C/Folic Acid (Vitamin B Complex W/Vitamin C) 1 tab PO DAILY HEATHER Stop: 03/11/18 08:59 Last Admin: 01/13/18 09:08 Dose: 1 tab Zolpidem Tartrate (Ambien) 5 mg PO HS PRN PRN Reason: Insomnia Stop: 03/10/18 22:40 General: demented HEENT: NC/AT, PERRLA, EOMI, anicteric sclerae, throat clear Neck: Supple, No JVD, No thyromegaly, +2 carotid pulse wo bruit, No LAD Lungs: CTAB Cardiovascular: RRR, Normal S1, Normal S2, without murmur Abdomen: soft, non-tender, non-distended Extremities: clear Neurological: no change - Procedures Procedures: Procedures Procedure Code Date GROUP PSYCHOTHERAPY 45108 04/26/15 GROUP PSYCHOTHERAPY GZHZZZZ 04/26/15 Internal Medicine Assmt/Plan - Assessment Assessment: 1.HTN. 2.HYPONATREMIA. 3.DJD. 4.DEMENTIA. - Plan Plan: CONTINUE ON CURRENT MEDICATION AND DIET.
--- NOTE | 2018-01-13 23:08 | Consultation ---
DATE OF CONSULTATION: 01/12/2018 REFERRING PHYSICIAN: Flora Iverson M.D. TYPE OF CONSULTATION: Psychology. HISTORY OF PRESENT ILLNESS: The patient is a 67-year-old male. The patient is a resident of [facility]. The following is by record review and by patient's self report. The patient is being admitted due to acute psychosis as well as agitation and aggressive behavior. 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 The staff at the patient's facility report that the patient has been exhibiting intermittent episodes of screaming as well as isolative and withdrawn behavior and resistance to care. The patient denied any wish to or any suicidal ideation, plan or intention. The patient has very limited insight and does not understand the reason for the hospitalization. PAST MEDICAL HISTORY: Please see history and physical by Dr. Ventura. PAST PSYCHIATRIC HISTORY: The patient has a history of schizophrenia, chronic paranoid type, as well as history of alcohol abuse. The patient is under the care of a psychiatrist at his placement. The patient has multiple previous hospitalizations. SUBSTANCE ABUSE HISTORY: The patient has a history of alcohol problems in the past. The patient did not disclose any information or elaborate about this question. He denied any current use. PSYCHOSOCIAL HISTORY: The patient did not answer questions about occupational or educational history or rastafari affiliation. The patient did not answer questions about history of physical or sexual abuse. The patient did not answer questions about current legal problems. The patient stated that he has no family support. MENTAL STATUS EXAMINATION: The patient appears to be his stated age. The patient's attitude is superficially cooperative. Eye contact is poor. Speech is mumbling and rambling. Mood is irritable. Affect is constricted. Thought process shows to be markedly tangential with loose associations. The patient denied any auditory or visual hallucinations. The patient denied any suicidal ideation. There is evidence of some paranoid ideation. The patient at times appears to be responding to internal stimuli. The patient denied aggressive behavior. He is exhibiting psychomotor agitation. Impulse control is impaired. Concentration is poor due to the patient's preoccupation with inner dialogue. Sensorium is alert and oriented to person and place. The patient did not participate in the memory assessment. The patient did not participate in the interpretation of proverbs. Insight is impaired. Judgment is impaired. DIAGNOSTIC IMPRESSION: AXIS I: 1. Schizophrenia, chronic paranoid type. 2. History of alcohol abuse. AXIS II: Deferred. AXIS III: Per Dr. Ventura. TREATMENT PLAN: The patient has been seen by Dr. Iverson for psychiatric evaluation and for the management of the patient's psychotropic medications. We will provide supportive psychotherapy to include reality orientation, differentiation and integration. We will encourage the patient to be able to verbally contract for safety. We will provide daily opportunities for the patient to be able to demonstrate emotional and self-regulation. We will provide coping strategies for severe long-term mental illness. We will provide cognitive and behavioral redirection to include motivational enhancement for the patient to become compliant and stay compliant with all aspects of his care and treatment. Thank you, Dr. Iverson for this consult and the opportunity to participate in this patient's care. JOB# [id number] MTDD
--- NOTE | 2018-01-13 23:22 | Progress Notes ---
DATE: 01/13/2018 SUBJECTIVE: Staff was spoken to. The patient is irritable and affect is constricted. The patient is isolative and withdrawn. Insight and judgment are noted to be impaired. Impulse control is noted to be poor. Coping skills noted to be poor. No side effects to the medications are noted. The patient is currently on olanzapine 5 mg at bedtime and has been able to tolerate the medication. ASSESSMENT: The patient's psychosis is resolving. PLAN: To continue the patient with the current medications and followup. JOB# [id number]
[2018-01-14] MEDS: Multivitamin w/ Minerals Tab PO SCH (08:47)
[2018-01-14] MEDS: Vitamin B Complex w/Vitamin C Tab PO SCH (08:47)
--- NOTE | 2018-01-14 22:33 | Internal Medicine Prog Note ---
Internal Medicine Subjective - Subjective Service Date: 01/14/18 Patient seen and examined:: with staff Patient is:: awake, verbal, confused Per staff patient has:: no adverse event Internal Medicine Objective - Results Result Diagrams: 01/09/18 17:12 01/09/18 17:12 Recent Labs: Laboratory Last Values WBC 6.5 Th/cmm (4.8-10.8) 01/09/18 17:12 RBC 4.39 Mil/cmm (3.80-5.80) 01/09/18 17:12 Hgb 13.0 gm/dL (12-16) 01/09/18 17:12 Hct 38.7 % (41.0-60) L 01/09/18 17:12 MCV 88.3 fl (80-99) 01/09/18 17:12 MCH 29.7 pg (27.0-31.0) 01/09/18 17:12 MCHC Differential 33.7 pg (28.0-36.0) 01/09/18 17:12 RDW 13.8 % (11.5-20.0) 01/09/18 17:12 Plt Count 212 Th/cmm (150-400) 01/09/18 17:12 MPV 7.5 fl 01/09/18 17:12 Neutrophils % 71.3 % (40.0-80.0) 01/09/18 17:12 Lymphocytes % 22.2 % (20.0-50.0) 01/09/18 17:12 Monocytes % 5.1 % (2.0-10.0) 01/09/18 17:12 Eosinophils % 1.4 % (0.0-5.0) 01/09/18 17:12 Basophils % 0.0 % (0.0-2.0) 01/09/18 17:12 Sodium 130 mEq/L (136-145) L 01/09/18 17:12 Potassium 4.5 mEq/L (3.5-5.1) 01/09/18 17:12 Chloride 96 mEq/L (98-107) L 01/09/18 17:12 Carbon Dioxide 29.6 mEq/L (21.0-31.0) 01/09/18 17:12 Anion Gap 8.9 (7.0-16.0) 01/09/18 17:12 BUN 16 mg/dL (7-25) 01/09/18 17:12 Creatinine 0.7 mg/dL (0.7-1.3) 01/09/18 17:12 Est GFR ( Amer) > 60.0 ml/min (>90) 01/09/18 17:12 Est GFR (Non-Af Amer) > 60.0 ml/min 01/09/18 17:12 BUN/Creatinine Ratio 22.9 01/09/18 17:12 Glucose 86 mg/dL (70-105) 01/09/18 17:12 Calcium 9.5 mg/dL (8.6-10.3) 01/09/18 17:12 Phosphorus 3.8 mg/dL (2.5-5.0) 01/09/18 17:12 Magnesium 2.1 mg/dL (1.9-2.7) 01/09/18 17:12 Total Bilirubin 0.2 mg/dL (0.3-1.0) L 01/09/18 17:12 AST 23 U/L (13-39) 01/09/18 17:12 ALT 14 U/L (7-52) 01/09/18 17:12 Alkaline Phosphatase 41 U/L (34-104) 01/09/18 17:12 Total Protein 7.9 gm/dL (6.0-8.3) 01/09/18 17:12 Albumin 4.0 gm/dL (4.2-5.5) L 01/09/18 17:12 Globulin 3.9 gm/dL 01/09/18 17:12 Albumin/Globulin Ratio 1.0 (1.0-1.8) 01/09/18 17:12 Urine Source CLEAN C 01/09/18 19:10 Urine Color YELLOW 01/09/18 19:10 Urine Clarity CLEAR (CLEAR) 01/09/18 19:10 Urine pH 7.0 (4.6 - 8.0) 01/09/18 19:10 Ur Specific [place] 1.015 (1.005-1.030) 01/09/18 19:10 Urine Protein NEGATIVE mg/dL (NEGATIVE) 01/09/18 19:10 Urine Glucose (UA) NEGATIVE mg/dL (NEGATIVE) 01/09/18 19:10 Urine Ketones NEGATIVE mg/dL (NEGATIVE) 01/09/18 19:10 Urine Blood NEGATIVE (NEGATIVE) 01/09/18 19:10 Urine Nitrate NEGATIVE (NEGATIVE) 01/09/18 19:10 Urine Bilirubin NEGATIVE (NEGATIVE) 01/09/18 19:10 Urine Urobilinogen 0.2 E.U./dL (0.2 - 1.0) 01/09/18 19:10 Ur Leukocyte Esterase NEGATIVE (NEGATIVE) 01/09/18 19:10 Urine RBC 0-2 /hpf (0-5) H 01/09/18 19:10 Urine WBC 2-5 /hpf (0-5) 01/09/18 19:10 Ur Epithelial Cells FEW /lpf (FEW) 01/09/18 19:10 Urine Bacteria OCCASIONAL /hpf (NONE SEEN) 01/09/18 19:10 Urine Mucus FEW /lpf (FEW) 01/09/18 19:10 Urine Opiates Screen NEGATIVE (NEGATIVE) 01/09/18 19:10 Urine Methadone Screen NEGATIVE (NEGATIVE) 01/09/18 19:10 Ur Barbiturates Screen NEGATIVE (NEGATIVE) 01/09/18 19:10 Ur Tricyclics Screen NEGATIVE (NEGATIVE) 01/09/18 19:10 Ur Phencyclidine Scrn NEGATIVE (NEGATIVE) 01/09/18 19:10 Amphetamines Screen NEGATIVE (NEGATIVE) 01/09/18 19:10 U Methamphetamines Scrn NEGATIVE (NEGATIVE) 01/09/18 19:10 U Benzodiazepines Scrn NEGATIVE (NEGATIVE) 01/09/18 19:10 U Cocaine Metab Screen NEGATIVE (NEGATIVE) 01/09/18 19:10 U Cannabinoids Screen NEGATIVE (NEGATIVE) 01/09/18 19:10 - Physical Exam Vitals and I&O: Vital Signs Temp 97.6 F 01/14/18 20:52 Pulse 81 01/14/18 20:52 Resp 20 01/14/18 20:52 BP 110/75 01/14/18 20:52 Pulse Ox 99 01/14/18 20:52 Intake & Output 01/14/18 01/14/18 01/15/18 06:59 18:59 06:59 Intake Total 500 Balance 500 Intake: Oral 500 Other: # Voids 4 # Bowel Movements 0 Active Medications: Current Medications Acetaminophen (Tylenol) 650 mg PO Q4HR PRN PRN Reason: Pain Stop: 03/10/18 19:22 Last Admin: 01/10/18 20:18 Dose: 650 mg Docusate Sodium (Colace) 100 mg PO BID HEATHER Stop: 03/11/18 08:59 Last Admin: 01/14/18 16:54 Dose: 100 mg Famotidine (Pepcid) 20 mg PO BID HEATHER Stop: 03/11/18 08:59 Last Admin: 01/14/18 16:53 Dose: 20 mg Lorazepam (Ativan) 0.5 mg PO Q4H PRN; Protocol PRN Reason: Anxiety Stop: 03/10/18 22:40 Magnesium Hydroxide (Milk Of Magnesia) 30 ml PO DAILY PRN PRN Reason: Constipation Stop: 03/10/18 19:22 Olanzapine (Zyprexa) 5 mg PO HS HEATHER; Protocol Stop: 03/12/18 20:59 Last Admin: 01/14/18 20:25 Dose: 5 mg Vitamin B Complex/Vit C/Folic Acid (Vitamin B Complex W/Vitamin C) 1 tab PO DAILY HEATHER Stop: 03/11/18 08:59 Last Admin: 01/14/18 08:47 Dose: 1 tab Zolpidem Tartrate (Ambien) 5 mg PO HS PRN PRN Reason: Insomnia Stop: 03/10/18 22:40 General: demented HEENT: NC/AT, PERRLA, EOMI, anicteric sclerae, throat clear Neck: Supple, No JVD, No thyromegaly, +2 carotid pulse wo bruit, No LAD Lungs: CTAB Cardiovascular: RRR, Normal S1, Normal S2, without murmur Abdomen: soft, non-tender, non-distended Extremities: clear Neurological: no change - Procedures Procedures: Procedures Procedure Code Date GROUP PSYCHOTHERAPY 22630 04/26/15 GROUP PSYCHOTHERAPY GZHZZZZ 04/26/15 Internal Medicine Assmt/Plan - Assessment Assessment: 1.HTN. 2.HYPONATREMIA. 3.DJD. 4.DEMENTIA. - Plan Plan: CONTINUE ON CURRENT MEDICATION AND DIET.
--- NOTE | 2018-01-14 22:36 | Progress Notes ---
DATE: 01/14/2018 PSYCHIATRIC PROGRESS NOTE SUBJECTIVE: Staff was spoken to. The patient is interviewed. Mood is noted to be less irritable today. The patient has been willing to comply with the treatment. No side effects to the medications are noted. The patient has paranoia, but is denying any command hallucinations. No side effects to the medications are noted. ASSESSMENT: The patient is stabilizing. PLAN: To continue the patient with the supportive therapy, encouraged the patient to verbalize the concerns rather than to act out. [facility]# [id number]
[2018-01-15] MEDS: Multivitamin w/ Minerals Tab PO SCH (09:58)
[2018-01-15] MEDS: Vitamin B Complex w/Vitamin C Tab PO SCH (09:58)
--- NOTE | 2018-01-15 12:52 | Progress Notes ---
DATE: 01/15/2018 SUBJECTIVE: Staff was spoken to. The patient is interviewed. Mood is noted to be anxious. Coping skills are noted to be improving. The patient is not aggressive. Insight and judgment are fair. Impulsive control is also fair. ASSESSMENT: The patient is stabilizing. PLAN: To discharge the patient today for followup on outpatient basis. JOB# [id number]
== END 2018-01-15 17:20 | DRG 885 ==
LOC: ER 16:57 → GERO2 17:00
PROVIDERS: ADMIT Psychiatry & Neurology Psychiatry; ATTEND Psychiatry & Neurology Psychiatry
DX: F20.0 Paranoid schizophrenia (principal); B19.20 Unspecified viral hepatitis C without hepatic coma; E87.1 Hypo-osmolality and hyponatremia; J44.9 Chronic obstructive pulmonary disease, unspecified; K21.9 Gastro-esophageal reflux disease without esophagitis; G20 Parkinson's disease; F32.9 Major depressive disorder, single episode, unspecified; I10 Essential (primary) hypertension; M19.90 Unspecified osteoarthritis, unspecified site; F03.90 Unspecified dementia, unspecified severity, without behavioral disturbance, psychotic disturbance, mood disturbance, and anxiety; F10.10 Alcohol abuse, uncomplicated; K59.00 Constipation, unspecified
CPT/HCPCS: 36415-UA; 80053-TC; 80307; 81001-TC; 83036-90; 83735-TC; 84100-TC; 85025-TC; J7051; Z7610

== ENCOUNTER 2018-11-04 18:49 | Inpatient (IN) | payer MEDICARE, MEDICAID ==
--- NOTE | 2018-11-04 19:06 | ED Physician Chart ---
ED Chief Complaint/HPI - Patient Information Date Seen:: 11/04/18 Time Seen:: 18:50 Chief Complaint:: Agitation History of Present Illness:: onset x 3 days of agitation and hostile behavior; no report of trauma, SIs, H/As , neck pain, C/P, SOB, Abd. Pain, or urinary s/s Allergies:: Allergies Allergy/AdvReac Type Severity Reaction Status Date / Time No Known Allergies Allergy Verified 12/29/15 15:28 Historian:: Patient, EMS Review:: Nurse's Note Reviewed, Old Chart Reviewed, EMS run form Reviewed ED Review of Systems - Review of Systems General/Constitutional: No fever, No chills, No weight loss, No weakness, No diaphoresis, No edema, No loss of appetite Skin: No skin lesions, No rash, No bruising Head: No headache, No light-headedness Eyes: No loss of vision, No pain, No diplopia ENT: No earache, No nasal drainage, No sore throat, No tinnitus Neck: No neck pain, No swelling, No thyromegaly, No stiffness, No mass noted Cardio Vascular: No chest pain, No palpitations, No PND, No orthopnea, No edema Pulmonary: No SOB, No cough, No sputum, No wheezing GI: No nausea, No vomiting, No diarrhea, No pain, No melena, No hematochezia, No constipation, No hematemesis G/U: No dysuria, No frequency, No hematuria, No nacturia Musculoskeletal: No bone or joint pain, No back pain, No muscle pain Endocrine: No polyuria, No polydipsia Psychiatric: Prior psych history, Depression, Anxiety, No suicidal ideation, No homicidal ideation, No auditory hallucination, No visual hallucination Hematopoietic: No bruising, No lymphadenopathy Allergic/Immuno: No urticaria, No angioedema Neurological: No syncope, No focal symptoms, No weakness, No paresthesia, No headache, No seizure, No dizziness, No confusion, No vertigo ED Past Medical History - Past Medical History Obtainable: Yes Past Medical History: HTN, Asthma/COPD, PUD/GERD Family History: HTN Social History: Non Smoker, No Alcohol, No Drug Use, Single, Care Facility Surgical History: None Psychiatricy History: Depression, Bipolar Medication: Reviewed Family Medical History - Family Member Mother History Unknown: Yes ED Physical Exam - Physical Examination General/Constitutional: Awake, Well-developed, well-nourished, Alert, No distress, GCS 15, Non-toxic appearing, Ambulatory Head: Atraumatic Eyes: Lids, conjuctiva normal, PERRL, EOMI Skin: Nl inspection, No rash, No skin lesions, No ecchymosis, Well hydrated, No lymphadenopathy ENMT: External ears, nose nl, TM canals nl, Nasal exam nl, Lips, teeth, gums nl , Oropharynx nl, Tonsils nl Neck: Nontender, Full ROM w/o pain, No JVD, No nuchal rigidity, No bruit, No mass, No stridor Respiratory: Nl effort/Exclusion, Clear to Auscultation, No Wheeze/Rhonchi/Rales Cardio Vascular: RRR, No murmur, gallop, rubs, NL S1 S2, Carotid/Femoral/Distal pulses equal bilaterally GI: No tenderness/rebounding/guarding, No organomegaly, No hernia, Normal BS's, Nondistended, No mass/bruits, No McBurney tenderness : No CVA tenderness Extremities: No tenderness or effusion, Full ROM, normal strength in all extremities, No edema, Normal digits & nails Neuro/Psych: Alert/oriented, DTR's symmetric, Normal sensory exam, Normal motor strength, Judgement/insight normal, Mood normal, Normal gait, No focal deficits Other Neuro/Psych comments:: + Psychomotor Agitation; no SIs; Mood/Affect: Labile Misc: Normal back, No paraspinal tenderness ED Labs/Radiology/EKG Results - Lab Results Comments:: Reviewed - EKG Interpretations Comments:: refused by pt ED Septic Shock - . Is Septic Shock (SBP<90, OR Lactate>4 mmol\L) present?: No ED Reassessment (Disposition) - Reassessment Reassessment Condition:: Improved - Diagnosis Diagnosis:: Agitation; Medical Clearance
[2018-11-04 20:33] LABS: % LYMPHOCYTES 14.8 % (20.0-50.0); % MONOCYTES 5.6 % (2.0-10.0); % NEUTROPHILS 78.6 % (40.0-80.0); EOSINOPHILE ABSOLUTE 0.1 Th/cmm (0.1-0.4); HEMATOCRIT 38.3 % (41.0-60); HEMOGLOBIN 13.1 gm/dL (12-16); LYMPHOCYTE ABSOLUTE 1.3 Th/cmm (1.5-3.0); MEAN CELL VOLUME 84.2 fl (80-99); MEAN CORPUSCULAR HEMOGLOBIN 28.8 pg (27.0-31.0); MEAN CORPUSCULAR HGB CONC 34.2 pg (28.0-36.0); MONOCYTE ABSOLUTE 0.5 Th/cmm (0.3-1.0); NEUTROPHILE ABSOLUTE 7.2 Th/cmm (1.8-8.0); PLATELET COUNT 284 Th/cmm (150-400); RED BLOOD COUNT 4.56 Mil/cmm (3.80-5.80); RED CELL DISTRIBUTION WIDTH 13.4 % (11.5-20.0); WHITE BLOOD COUNT 9.1 Th/cmm (4.8-10.8)
[2018-11-04 20:47] LABS: ALB/GLOB RATIO 0.8 (1.0-1.8); ALBUMIN 3.5 gm/dL (4.2-5.5); ALKALINE PHOSPHATASE 68 U/L (34-104); ANION GAP 12.5 (7.0-16.0); BILIRUBIN,TOTAL 0.2 mg/dL (0.3-1.0); BUN - UREA NITROGEN 21 mg/dL (7-25); CALCIUM SERUM 9.6 mg/dL (8.6-10.3); CARBON DIOXIDE 29.5 mEq/L (21.0-31.0); CHLORIDE 98 mEq/L (98-107); CHOLESTEROL 173 mg/dL (<200); CREATININE - SERUM 0.9 mg/dL (0.7-1.3); GFR AFRICAN-AMERICAN > 60.0 ml/min (>90); GFR NON AFRICAN-AMERICAN > 60.0 ml/min; GLUCOSE 138 mg/dL (70-105); HDL -HIGH DENSITY LIPOPROTEIN 40 mg/dL (23-92); SGOT 17 U/L (13-39); SGPT/ALT 15 U/L (7-52); SODIUM SERUM 136 mEq/L (136-145); TOTAL PROTEIN,SERUM 8.1 gm/dL (6.0-8.3); TRIGLYCERIDES 122 mg/dL (<150)
[2018-11-04 20:49] LABS: ACETAMINOPHEN < 10.0 ug/mL (10.0-30.0)
[2018-11-04 23:18] VITALS: BP 125/82
[2018-11-04] MEDS ORDERED: Magnesium Hydroxide (MOM) 30 mL UDC PO PRN (23:28)
[2018-11-05] MEDS: Multivitamin w/ Minerals Tab PO SCH (09:10)
--- NOTE | 2018-11-05 19:42 | History & Physical ---
ADMIT DATE: HISTORY OF PRESENT ILLNESS: The patient is a 68-year-old male with long history of COPD, psychosis, admitted to [facility] under Dr. Alphonso West's service, psychiatrist. The patient denies any chest pain, shortness of breath, nausea, vomiting, fever or chills. PAST MEDICAL HISTORY: Significant for COPD, degenerative joint disease and psychosis. PAST SURGICAL HISTORY: No recent surgery. ALLERGIES: None. MEDICATIONS: Follow admission reconciliation. SOCIAL HISTORY: Chronic smoker. No alcohol or drug. FAMILY HISTORY: Noncontributory. REVIEW OF SYSTEMS: RENAL SYSTEM: No history of chronic renal disorder. CARDIOVASCULAR SYSTEM: No coronary artery disease. ENDOCRINE SYSTEM: No diabetes or thyroid problem. GASTROINTESTINAL SYSTEM: No upper or lower gastrointestinal bleed. NEUROLOGICAL SYSTEM: Seizure disorder. MUSCULOSKELETAL SYSTEM: No muscular dystrophy. HEMATOLOGIC SYSTEM: No bleeding tendencies. RESPIRATORY SYSTEM: Has history of COPD. GENITOURINARY: No dysuria or hematuria. PHYSICAL EXAMINATION: GENERAL: She is awake, alert, mildly confused. VITAL SIGNS: Temperature 98.2, heart rate 73, blood pressure 105/59. HEENT: Normocephalic. Pupils reactive to light and accommodation. Sclerae clear. NECK: Supple. Negative for lymphadenopathy, JVD or bruit. CHEST: Entry of air bilateral, mild diminished. HEART: S1, S2 normal. ABDOMEN: Soft, bowel sounds positive. EXTREMITIES: No edema. NEUROLOGIC: She is awake, alert, mildly confused. No focal motor or sensory deficit. LABORATORY DATA: White blood cell 9.1, hemoglobin 13.1, hematocrit 38.3, platelet is 284. Sodium 136, potassium 4, BUN 21, creatinine 0.9. ASSESSMENT: 1. Chronic obstructive pulmonary disease. 2. Degenerative joint disease. 3. Chronic constipation. 4. Psychosis. PLAN: The patient admitted to the hospital under Dr. West's service. Medical problem addressed during hospitalization is psychosis. Medical problems to be addressed at discharge COPD, degenerative joint disease. The patient is medically stable for activity. Thank you, Dr. West for asking me to see your patient. The patient is a full code. JOB# [id number]
[2018-11-05] MEDS ORDERED: Non-Formulary Item 1 EA (Melatonin [Melatonin] 3 MG) PO SCH (21:00)
[2018-11-06 04:04] LABS: A1C 5.3 % (4.8-5.6)
[2018-11-06] MEDS: Multivitamin w/ Minerals Tab PO SCH (08:18)
--- NOTE | 2018-11-06 08:41 | Psychiatric Evaluation ---
DATE OF SERVICE: 11/05/2018 IDENTIFYING DATA: The patient is a 68-year-old male, resident at [facility] in [place]. Information obtained by directly interviewing the patient as well as reviewing the admission papers. JUSTIFICATION FOR HOSPITALIZATION: The patient is admitted over here for acute psychosis. CHIEF COMPLAINT: "I do not need any medications. I am here for just to eat and then sleep and then I am going to get out." HISTORY OF PRESENT ILLNESS: This is one of multiple psychiatric hospitalizations for this patient who has been hospitalized on multiple occasions over here and the patient has been diagnosed with schizophrenia, chronic paranoid type and has been noncompliant with the medication. The patient at the time of the evaluation has been out of control, screaming and yelling and is very much argumentative and the patient has been easily agitated and the patient has been tried to be given a dose of Ativan to calm him down. The patient is reporting that he does not want to take any medications. The patient is going on a tangent and not making much sense. The patient has been noncompliant to the medications at one time, he was on Prolixin Decanoate. PAST PSYCHIATRIC HISTORY: Please refer to the above. MEDICAL HISTORY AND PHYSICAL EXAMINATION: Requested to be done by Dr. Wilkinson. SUBSTANCE ABUSE HISTORY: None. PHYSICAL OR SEXUAL ABUSE HISTORY: None. SOCIAL HISTORY: The patient is a resident of the [facility]. 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 MENTAL STATUS EXAMINATION: The patient is a 68-year-old, looking his stated age, thin built, superficially cooperative. Eye contact is poor. Mood is noted to be irritable. Affect is constricted. The patient is getting easily agitated. Insight and judgment at this time are noted to be still impaired. Impulse control is noted to be poor. Coping skills are noted to be poor. The patient has no insight. The patient is screaming and yelling at me and the patient is very argumentative. The patient is going on a tangent not making much sense. The patient's coping skills are noted to be very poor. The patient is acutely psychotic and is responding to internal stimuli. The patient's behavior is a clear danger to self and others. DIAGNOSTIC IMPRESSION: AXIS I: Schizophrenia, chronic paranoid type with acute exacerbation. AXIS II: None. AXIS III: As per Dr. Wilkinson. IMMEDIATE TREATMENT PLAN: The patient is going to be observed on inpatient unit, provided with supportive psychotherapy. The patient is going to be closely monitored. Once stabilized, the patient is going to be discharged to [facility] to be followed up on an outpatient basis. JOB# [id number]
--- NOTE | 2018-11-06 23:23 | Internal Medicine Prog Note ---
Internal Medicine Subjective - Subjective Service Date: 11/06/18 Patient seen and examined:: with staff Patient is:: awake, verbal, arlyn chair, confused Per staff patient has:: no adverse event Internal Medicine Objective - Results Result Diagrams: 11/04/18 20:15 11/04/18 20:15 Recent Labs: Laboratory Last Values WBC 9.1 Th/cmm (4.8-10.8) 11/04/18 20:15 RBC 4.56 Mil/cmm (3.80-5.80) 11/04/18 20:15 Hgb 13.1 gm/dL (12-16) 11/04/18 20:15 Hct 38.3 % (41.0-60) L 11/04/18 20:15 MCV 84.2 fl (80-99) 11/04/18 20:15 MCH 28.8 pg (27.0-31.0) 11/04/18 20:15 MCHC Differential 34.2 pg (28.0-36.0) 11/04/18 20:15 RDW 13.4 % (11.5-20.0) 11/04/18 20:15 Plt Count 284 Th/cmm (150-400) 11/04/18 20:15 MPV 7.6 fl 11/04/18 20:15 Neutrophils % 78.6 % (40.0-80.0) 11/04/18 20:15 Lymphocytes % 14.8 % (20.0-50.0) L 11/04/18 20:15 Monocytes % 5.6 % (2.0-10.0) 11/04/18 20:15 Eosinophils % 1.0 % (0.0-5.0) 11/04/18 20:15 Basophils % 0.0 % (0.0-2.0) 11/04/18 20:15 Sodium 136 mEq/L (136-145) 11/04/18 20:15 Potassium 4.0 mEq/L (3.5-5.1) 11/04/18 20:15 Chloride 98 mEq/L (98-107) 11/04/18 20:15 Carbon Dioxide 29.5 mEq/L (21.0-31.0) 11/04/18 20:15 Anion Gap 12.5 (7.0-16.0) 11/04/18 20:15 BUN 21 mg/dL (7-25) 11/04/18 20:15 Creatinine 0.9 mg/dL (0.7-1.3) 11/04/18 20:15 Est GFR ( Amer) > 60.0 ml/min (>90) 11/04/18 20:15 Est GFR (Non-Af Amer) > 60.0 ml/min 11/04/18 20:15 BUN/Creatinine Ratio 23.3 11/04/18 20:15 Glucose 138 mg/dL (70-105) H 11/04/18 20:15 Calcium 9.6 mg/dL (8.6-10.3) 11/04/18 20:15 Total Bilirubin 0.2 mg/dL (0.3-1.0) L 11/04/18 20:15 AST 17 U/L (13-39) 11/04/18 20:15 ALT 15 U/L (7-52) 11/04/18 20:15 Alkaline Phosphatase 68 U/L (34-104) 11/04/18 20:15 Troponin I < 0.01 ng/mL (0.01-0.05) L 11/04/18 20:15 Total Protein 8.1 gm/dL (6.0-8.3) 11/04/18 20:15 Albumin 3.5 gm/dL (4.2-5.5) L 11/04/18 20:15 Globulin 4.6 gm/dL 11/04/18 20:15 Albumin/Globulin Ratio 0.8 (1.0-1.8) L 11/04/18 20:15 Triglycerides 122 mg/dL (<150) 11/04/18 20:15 Cholesterol 173 mg/dL (<200) 11/04/18 20:15 LDL Cholesterol Direct 119 mg/dL (75-193) 11/04/18 20:15 HDL Cholesterol 40 mg/dL (23-92) 11/04/18 20:15 TSH 1.38 uIU/ml (0.34-5.60) 11/04/18 20:15 Salicylates < 25.0 mg/L (30.0-100.0) L 11/04/18 20:15 Acetaminophen < 10.0 ug/mL (10.0-30.0) L 11/04/18 20:15 Ethyl Alcohol < 10 mg/dL (0-10) 11/04/18 20:15 - Physical Exam Vitals and I&O: Vital Signs Temp 97.8 F 11/06/18 21:14 Pulse 82 11/06/18 21:14 Resp 20 11/06/18 21:14 BP 116/70 11/06/18 21:14 Pulse Ox 99 11/06/18 21:14 Intake & Output 11/06/18 11/06/18 11/07/18 06:59 18:59 06:59 Intake Total 240 1200 120 Balance 240 1200 120 Intake: Oral 240 1200 120 Other: # Voids 2 2 # Bowel Movements 0 1 0 Stool Characteristics Soft Soft Active Medications: Current Medications Acetaminophen (Tylenol) 650 mg PO Q4HR PRN PRN Reason: Pain Stop: 01/03/19 23:27 Docusate Sodium (Colace) 100 mg PO BID HEATHER Stop: 01/04/19 08:59 Last Admin: 11/06/18 16:29 Dose: Not Given Lorazepam (Ativan) 0.5 mg PO Q6HR PRN; Protocol PRN Reason: Anxiety Stop: 12/04/18 23:19 Last Admin: 11/06/18 08:56 Dose: 0.5 mg Magnesium Hydroxide (Milk Of Magnesia) 30 ml PO DAILY PRN PRN Reason: Constipation Stop: 01/03/19 23:27 Mupirocin (Bactroban Oint) 1 appl NS BID HEATHER Stop: 11/11/18 17:01 Olanzapine (Zyprexa) 5 mg PO Q12H HEATHER; Protocol Stop: 01/05/19 20:59 Last Admin: 11/06/18 20:56 Dose: 5 mg Zolpidem Tartrate (Ambien) 5 mg PO HS PRN PRN Reason: Insomnia Stop: 01/03/19 23:19 Last Admin: 11/06/18 20:56 Dose: 5 mg General: alert, demented HEENT: NC/AT, PERRLA, EOMI, anicteric sclerae, throat clear Neck: Supple, No JVD, No thyromegaly, +2 carotid pulse wo bruit, No LAD Lungs: CTAB Cardiovascular: RRR, Normal S1, Normal S2, without murmur Abdomen: soft, non-tender, non-distended Extremities: clear Neurological: no change, gait stable - Procedures Procedures: Procedures Procedure Code Date GROUP PSYCHOTHERAPY 57312 04/26/15 GROUP PSYCHOTHERAPY GZHZZZZ 04/26/15 Internal Medicine Assmt/Plan - Assessment Assessment: 1.COPD. 2.DJD. 3.CONSTIPATION. 4.PSYCHOSIS - Plan Plan: CONTINUE ON CURRENT MEDICATION AND DIET.
--- NOTE | 2018-11-07 02:30 | Progress Notes ---
DATE: 11/06/2018 PSYCHIATRIC PROGRESS NOTE SUBJECTIVE: Staff was spoken to. The patient is interviewed. Mood is noted to be irritable. Affect is constricted. Insight and judgment are noted to be still impaired. Impulse control is noted to be limited. Coping skills are noted to be limited. The patient has been having difficult time to cope with the stress. Continues to be very paranoid and intrusive and impulsive. The patient has no insight into his illness. ASSESSMENT: The patient is still grossly psychotic. PLAN: To continue the patient with the supportive therapy. I encouraged the patient with the Zyprexa and followup. JOB# [id number]
[2018-11-07] MEDS: Multivitamin w/ Minerals Tab PO SCH (08:20)
--- NOTE | 2018-11-07 17:13 | Progress Notes ---
DATE: 11/07/2018 PSYCHIATRIC PROGRESS NOTE SUBJECTIVE: Staff was spoken to. The patient is interviewed. Mood is noted to be irritable. Affect is constricted. Coping skills are noted to be extremely poor. Sleep and appetite also noted to be very poor. The patient has been having difficult time to cope with the stress. The patient is getting easily irritable and angry at this time. The patient is testing the limits. ASSESSMENT: The patient is still grossly psychotic. PLAN: To continue the patient with the supportive therapy. I encouraged the patient to verbalize the concerns rather than to act out. JOB# [id number]
--- NOTE | 2018-11-07 17:33 | Consultation ---
DATE OF CONSULTATION: 11/07/2018 REFERRING PHYSICIAN: Flora Iverson MD TYPE OF CONSULTATION: Psychology. HISTORY OF PRESENT ILLNESS: The patient is a 68-year-old male. The patient is a resident of [facility]. The patient is known to this proposal writer from previous hospitalizations. The following is by review of the medical record and by patient's self-report. The patient is being admitted due to acute psychosis. Upon interview, the patient is stating that he does not need any medications and that he is just here to eat and sleep and then he is going to go back to his placement. The staff at the patient's facility report that the patient had become out of control with screaming and yelling episodes as well as being argumentative. The patient presents as easily agitated. The patient is stating that he does not want to take any medications and is noncompliant as well as being difficult to redirect. PAST MEDICAL HISTORY: Please see history and physical by Dr. Wilkinson. PAST PSYCHIATRIC HISTORY: The patient has multiple previous psychiatric hospitalizations. The patient is under the care of Dr. West for Psychiatry at his placement. SUBSTANCE ABUSE HISTORY: The patient denied any history of alcohol, tobacco or illicit drug use. PSYCHOSOCIAL HISTORY: The patient did not answer questions about occupational or educational history. The patient is single and never with no children. The patient is conserved. The patient's conservator is Conner Kerns; contact number is in the medical record. The patient denied any history of physical or sexual abuse. The patient denied any current legal problems. MENTAL STATUS EXAMINATION: The patient appears to be older than his stated age. The patient's attitude is superficially cooperative with intermittent outbursts. Eye contact is poor. Speech is delayed and rambling. Mood is irritable. Affect is constricted. The patient is getting easily agitated during the clinical interview. The patient denied any auditory or visual hallucinations. The patient's behavior has been difficult to redirect on the unit according to the staff. Impulse control is inadequate. The patient at times raises his voice to yelling and is generally argumentative. The patient has poor insight into his illness and is not making much sense. Sensorium is alert and oriented to self and place only. The patient did not participate in the memory assessment. Concentration is poor. The patient may be responding to internal stimuli. The patient's behavior presents as a danger to others. The patient did not participate in the interpretation of proverbs. Insight is impaired. Judgment is impaired. DIAGNOSTIC IMPRESSION: AXIS I: 1. History of schizophrenia, chronic paranoid type with acute exacerbation. 2. Impulse control disorder, not otherwise specified. AXIS II: Deferred. AXIS III: Per Dr. Wilkinson. TREATMENT PLAN: The patient has been seen by Dr. Iverson for psychiatric evaluation and for the management of the patient's psychotropic medications. We will provide supportive psychotherapy to include reality orientation, differentiation and integration. We will provide de-escalation and limit setting. We will provide cognitive and behavioral redirection. We will encourage the patient to demonstrate emotional and self-regulation by verbalizing his concerns versus acting out. We will provide motivational enhancement for the patient to become compliant and stay compliant with all aspects of his care and treatment. We will provide coping strategies for phase of life issues as well as for chronic severe mental illness. We will provide daily opportunities for the patient to verbally contract for safety, including no self-harm and no harm to others. Thank you, Dr. Iverson for this consult and the opportunity to participate in this patient's care. JOB# [id number] MICKIE
--- NOTE | 2018-11-07 20:43 | Internal Medicine Prog Note ---
Internal Medicine Subjective - Subjective Service Date: 11/07/18 Patient seen and examined:: without staff (HE FEELS WELL) Patient is:: awake, verbal, arlyn chair, confused Per staff patient has:: no adverse event Internal Medicine Objective - Results Result Diagrams: 11/04/18 20:15 11/04/18 20:15 Recent Labs: Laboratory Last Values WBC 9.1 Th/cmm (4.8-10.8) 11/04/18 20:15 RBC 4.56 Mil/cmm (3.80-5.80) 11/04/18 20:15 Hgb 13.1 gm/dL (12-16) 11/04/18 20:15 Hct 38.3 % (41.0-60) L 11/04/18 20:15 MCV 84.2 fl (80-99) 11/04/18 20:15 MCH 28.8 pg (27.0-31.0) 11/04/18 20:15 MCHC Differential 34.2 pg (28.0-36.0) 11/04/18 20:15 RDW 13.4 % (11.5-20.0) 11/04/18 20:15 Plt Count 284 Th/cmm (150-400) 11/04/18 20:15 MPV 7.6 fl 11/04/18 20:15 Neutrophils % 78.6 % (40.0-80.0) 11/04/18 20:15 Lymphocytes % 14.8 % (20.0-50.0) L 11/04/18 20:15 Monocytes % 5.6 % (2.0-10.0) 11/04/18 20:15 Eosinophils % 1.0 % (0.0-5.0) 11/04/18 20:15 Basophils % 0.0 % (0.0-2.0) 11/04/18 20:15 Sodium 136 mEq/L (136-145) 11/04/18 20:15 Potassium 4.0 mEq/L (3.5-5.1) 11/04/18 20:15 Chloride 98 mEq/L (98-107) 11/04/18 20:15 Carbon Dioxide 29.5 mEq/L (21.0-31.0) 11/04/18 20:15 Anion Gap 12.5 (7.0-16.0) 11/04/18 20:15 BUN 21 mg/dL (7-25) 11/04/18 20:15 Creatinine 0.9 mg/dL (0.7-1.3) 11/04/18 20:15 Est GFR ( Amer) > 60.0 ml/min (>90) 11/04/18 20:15 Est GFR (Non-Af Amer) > 60.0 ml/min 11/04/18 20:15 BUN/Creatinine Ratio 23.3 11/04/18 20:15 Glucose 138 mg/dL (70-105) H 11/04/18 20:15 Calcium 9.6 mg/dL (8.6-10.3) 11/04/18 20:15 Total Bilirubin 0.2 mg/dL (0.3-1.0) L 11/04/18 20:15 AST 17 U/L (13-39) 11/04/18 20:15 ALT 15 U/L (7-52) 11/04/18 20:15 Alkaline Phosphatase 68 U/L (34-104) 11/04/18 20:15 Troponin I < 0.01 ng/mL (0.01-0.05) L 11/04/18 20:15 Total Protein 8.1 gm/dL (6.0-8.3) 11/04/18 20:15 Albumin 3.5 gm/dL (4.2-5.5) L 11/04/18 20:15 Globulin 4.6 gm/dL 11/04/18 20:15 Albumin/Globulin Ratio 0.8 (1.0-1.8) L 11/04/18 20:15 Triglycerides 122 mg/dL (<150) 11/04/18 20:15 Cholesterol 173 mg/dL (<200) 11/04/18 20:15 LDL Cholesterol Direct 119 mg/dL (75-193) 11/04/18 20:15 HDL Cholesterol 40 mg/dL (23-92) 11/04/18 20:15 TSH 1.38 uIU/ml (0.34-5.60) 11/04/18 20:15 Salicylates < 25.0 mg/L (30.0-100.0) L 11/04/18 20:15 Acetaminophen < 10.0 ug/mL (10.0-30.0) L 11/04/18 20:15 Ethyl Alcohol < 10 mg/dL (0-10) 11/04/18 20:15 RPR NONREACTIVE (NONREACTIVE) 11/04/18 20:15 - Physical Exam Vitals and I&O: Vital Signs Temp 98.3 F 11/07/18 19:58 Pulse 86 11/07/18 19:58 Resp 19 11/07/18 19:58 BP 152/94 11/07/18 19:58 Pulse Ox 94 11/07/18 19:58 Intake & Output 11/07/18 11/07/18 11/08/18 06:59 18:59 06:59 Intake Total 240 1300 240 Balance 240 1300 240 Intake: Oral 240 1300 240 Other: # Voids 2 3 2 # Bowel Movements 0 0 Stool Characteristics Soft Soft Active Medications: Current Medications Acetaminophen (Tylenol) 650 mg PO Q4HR PRN PRN Reason: Pain Stop: 01/03/19 23:27 Docusate Sodium (Colace) 100 mg PO BID HEATHER Stop: 01/04/19 08:59 Last Admin: 11/07/18 16:18 Dose: 100 mg Lorazepam (Ativan) 0.5 mg PO Q6HR PRN; Protocol PRN Reason: Anxiety Stop: 12/04/18 23:19 Last Admin: 11/06/18 08:56 Dose: 0.5 mg Magnesium Hydroxide (Milk Of Magnesia) 30 ml PO DAILY PRN PRN Reason: Constipation Stop: 01/03/19 23:27 Mupirocin (Bactroban Oint) 1 appl NS BID HEATHER Stop: 11/11/18 17:01 Last Admin: 11/07/18 16:16 Dose: 1 appl Olanzapine (Zyprexa) 5 mg PO Q12H HEATHER; Protocol Stop: 01/05/19 20:59 Last Admin: 11/07/18 08:20 Dose: 5 mg Zolpidem Tartrate (Ambien) 5 mg PO HS PRN PRN Reason: Insomnia Stop: 01/03/19 23:19 Last Admin: 11/06/18 20:56 Dose: 5 mg General: alert, demented HEENT: NC/AT, PERRLA, EOMI, anicteric sclerae, throat clear Neck: Supple, No JVD, No thyromegaly, +2 carotid pulse wo bruit, No LAD Lungs: CTAB Cardiovascular: RRR, Normal S1, Normal S2, without murmur Abdomen: soft, non-tender, non-distended Extremities: clear Neurological: no change, gait stable - Procedures Procedures: Procedures Procedure Code Date GROUP PSYCHOTHERAPY 25566 04/26/15 GROUP PSYCHOTHERAPY GZHZZZZ 04/26/15 Internal Medicine Assmt/Plan - Assessment Assessment: 1.COPD. 2.DJD. 3.CONSTIPATION. 4.PSYCHOSIS - Plan Plan: CONTINUE ON CURRENT MEDICATION AND DIET.
[2018-11-08] MEDS: Multivitamin w/ Minerals Tab PO SCH (08:30)
--- NOTE | 2018-11-08 21:03 | Internal Medicine Prog Note ---
Internal Medicine Subjective - Subjective Service Date: 11/08/18 Patient seen and examined:: with staff (HE IS DOING BETTER) Patient is:: awake, verbal, arlyn chair, confused Per staff patient has:: no adverse event Internal Medicine Objective - Results Result Diagrams: 11/04/18 20:15 11/04/18 20:15 Recent Labs: Laboratory Last Values WBC 9.1 Th/cmm (4.8-10.8) 11/04/18 20:15 RBC 4.56 Mil/cmm (3.80-5.80) 11/04/18 20:15 Hgb 13.1 gm/dL (12-16) 11/04/18 20:15 Hct 38.3 % (41.0-60) L 11/04/18 20:15 MCV 84.2 fl (80-99) 11/04/18 20:15 MCH 28.8 pg (27.0-31.0) 11/04/18 20:15 MCHC Differential 34.2 pg (28.0-36.0) 11/04/18 20:15 RDW 13.4 % (11.5-20.0) 11/04/18 20:15 Plt Count 284 Th/cmm (150-400) 11/04/18 20:15 MPV 7.6 fl 11/04/18 20:15 Neutrophils % 78.6 % (40.0-80.0) 11/04/18 20:15 Lymphocytes % 14.8 % (20.0-50.0) L 11/04/18 20:15 Monocytes % 5.6 % (2.0-10.0) 11/04/18 20:15 Eosinophils % 1.0 % (0.0-5.0) 11/04/18 20:15 Basophils % 0.0 % (0.0-2.0) 11/04/18 20:15 Sodium 136 mEq/L (136-145) 11/04/18 20:15 Potassium 4.0 mEq/L (3.5-5.1) 11/04/18 20:15 Chloride 98 mEq/L (98-107) 11/04/18 20:15 Carbon Dioxide 29.5 mEq/L (21.0-31.0) 11/04/18 20:15 Anion Gap 12.5 (7.0-16.0) 11/04/18 20:15 BUN 21 mg/dL (7-25) 11/04/18 20:15 Creatinine 0.9 mg/dL (0.7-1.3) 11/04/18 20:15 Est GFR ( Amer) > 60.0 ml/min (>90) 11/04/18 20:15 Est GFR (Non-Af Amer) > 60.0 ml/min 11/04/18 20:15 BUN/Creatinine Ratio 23.3 11/04/18 20:15 Glucose 138 mg/dL (70-105) H 11/04/18 20:15 Calcium 9.6 mg/dL (8.6-10.3) 11/04/18 20:15 Total Bilirubin 0.2 mg/dL (0.3-1.0) L 11/04/18 20:15 AST 17 U/L (13-39) 11/04/18 20:15 ALT 15 U/L (7-52) 11/04/18 20:15 Alkaline Phosphatase 68 U/L (34-104) 11/04/18 20:15 Troponin I < 0.01 ng/mL (0.01-0.05) L 11/04/18 20:15 Total Protein 8.1 gm/dL (6.0-8.3) 11/04/18 20:15 Albumin 3.5 gm/dL (4.2-5.5) L 11/04/18 20:15 Globulin 4.6 gm/dL 11/04/18 20:15 Albumin/Globulin Ratio 0.8 (1.0-1.8) L 11/04/18 20:15 Triglycerides 122 mg/dL (<150) 11/04/18 20:15 Cholesterol 173 mg/dL (<200) 11/04/18 20:15 LDL Cholesterol Direct 119 mg/dL (75-193) 11/04/18 20:15 HDL Cholesterol 40 mg/dL (23-92) 11/04/18 20:15 TSH 1.38 uIU/ml (0.34-5.60) 11/04/18 20:15 Salicylates < 25.0 mg/L (30.0-100.0) L 11/04/18 20:15 Acetaminophen < 10.0 ug/mL (10.0-30.0) L 11/04/18 20:15 Ethyl Alcohol < 10 mg/dL (0-10) 11/04/18 20:15 RPR NONREACTIVE (NONREACTIVE) 11/04/18 20:15 - Physical Exam Vitals and I&O: Vital Signs Temp 97.4 F 11/08/18 20:00 Pulse 89 11/08/18 20:00 Resp 19 11/08/18 20:00 BP 124/72 11/08/18 20:00 Pulse Ox 96 11/08/18 20:00 Intake & Output 11/08/18 11/08/18 11/09/18 06:59 18:59 06:59 Intake Total 720 1350 240 Balance 720 1350 240 Weight (lbs) 70.307 kg Intake: Oral 720 1350 240 Other: # Voids 2 2 # Bowel Movements 1 Stool Characteristics Soft Soft Soft Weight Source Bedscale Active Medications: Current Medications Acetaminophen (Tylenol) 650 mg PO Q4HR PRN PRN Reason: Pain Stop: 01/03/19 23:27 Docusate Sodium (Colace) 100 mg PO BID [facility] Stop: 01/04/19 08:59 Last Admin: 11/08/18 17:49 Dose: Not Given Lorazepam (Ativan) 0.5 mg PO Q6HR PRN; Protocol PRN Reason: Anxiety Stop: 12/04/18 23:19 Last Admin: 11/06/18 08:56 Dose: 0.5 mg Magnesium Hydroxide (Milk Of Magnesia) 30 ml PO DAILY PRN PRN Reason: Constipation Stop: 01/03/19 23:27 Mupirocin (Bactroban Oint) 1 appl NS BID [facility] Stop: 11/11/18 17:01 Last Admin: 11/08/18 17:49 Dose: Not Given Olanzapine (Zyprexa) 5 mg PO Q12H [facility]; Protocol Stop: 01/05/19 20:59 Last Admin: 11/08/18 20:45 Dose: 5 mg Zolpidem Tartrate (Ambien) 5 mg PO HS PRN PRN Reason: Insomnia Stop: 01/03/19 23:19 Last Admin: 11/06/18 20:56 Dose: 5 mg General: alert, demented HEENT: NC/AT, PERRLA, EOMI, anicteric sclerae, throat clear Neck: Supple, No JVD, No thyromegaly, +2 carotid pulse wo bruit, No LAD Lungs: CTAB Cardiovascular: RRR, Normal S1, Normal S2, without murmur Abdomen: soft, non-tender, non-distended Extremities: clear Neurological: no change, gait stable - Procedures Procedures: Procedures Procedure Code Date GROUP PSYCHOTHERAPY 49881 04/26/15 GROUP PSYCHOTHERAPY GZHZZZZ 04/26/15 Internal Medicine Assmt/Plan - Assessment Assessment: 1.COPD. 2.DJD. 3.CONSTIPATION. 4.PSYCHOSIS - Plan Plan: CONTINUE ON CURRENT MEDICATION AND DIET.
--- NOTE | 2018-11-08 23:29 | Progress Notes ---
DATE: 11/08/2018 SUBJECTIVE: Staff was spoken to. The patient is interviewed. Mood is noted to be irritable. Affect is constricted. Insight and judgment at this time are noted to be still impaired. Impulse control is noted to be limited. Coping skills are noted to be limited. The patient has been having difficult time to cope with the stress, continues to be very paranoid and testing the limits. ASSESSMENT: The patient is still grossly psychotic. PLAN: To continue the patient with the supportive therapy, encouraged this patient to verbalize the concerns rather than to act out. JOB# [id number]
[2018-11-09] MEDS: Multivitamin w/ Minerals Tab PO SCH (09:51)
--- NOTE | 2018-11-09 17:38 | Internal Medicine Prog Note ---
Internal Medicine Subjective - Subjective Service Date: 11/09/18 Patient seen and examined:: without staff (HE FEELS WELL) Patient is:: awake, verbal, arlyn chair, confused Per staff patient has:: no adverse event Internal Medicine Objective - Results Result Diagrams: 11/04/18 20:15 11/04/18 20:15 Recent Labs: Laboratory Last Values WBC 9.1 Th/cmm (4.8-10.8) 11/04/18 20:15 RBC 4.56 Mil/cmm (3.80-5.80) 11/04/18 20:15 Hgb 13.1 gm/dL (12-16) 11/04/18 20:15 Hct 38.3 % (41.0-60) L 11/04/18 20:15 MCV 84.2 fl (80-99) 11/04/18 20:15 MCH 28.8 pg (27.0-31.0) 11/04/18 20:15 MCHC Differential 34.2 pg (28.0-36.0) 11/04/18 20:15 RDW 13.4 % (11.5-20.0) 11/04/18 20:15 Plt Count 284 Th/cmm (150-400) 11/04/18 20:15 MPV 7.6 fl 11/04/18 20:15 Neutrophils % 78.6 % (40.0-80.0) 11/04/18 20:15 Lymphocytes % 14.8 % (20.0-50.0) L 11/04/18 20:15 Monocytes % 5.6 % (2.0-10.0) 11/04/18 20:15 Eosinophils % 1.0 % (0.0-5.0) 11/04/18 20:15 Basophils % 0.0 % (0.0-2.0) 11/04/18 20:15 Sodium 136 mEq/L (136-145) 11/04/18 20:15 Potassium 4.0 mEq/L (3.5-5.1) 11/04/18 20:15 Chloride 98 mEq/L (98-107) 11/04/18 20:15 Carbon Dioxide 29.5 mEq/L (21.0-31.0) 11/04/18 20:15 Anion Gap 12.5 (7.0-16.0) 11/04/18 20:15 BUN 21 mg/dL (7-25) 11/04/18 20:15 Creatinine 0.9 mg/dL (0.7-1.3) 11/04/18 20:15 Est GFR ( Amer) > 60.0 ml/min (>90) 11/04/18 20:15 Est GFR (Non-Af Amer) > 60.0 ml/min 11/04/18 20:15 BUN/Creatinine Ratio 23.3 11/04/18 20:15 Glucose 138 mg/dL (70-105) H 11/04/18 20:15 Calcium 9.6 mg/dL (8.6-10.3) 11/04/18 20:15 Total Bilirubin 0.2 mg/dL (0.3-1.0) L 11/04/18 20:15 AST 17 U/L (13-39) 11/04/18 20:15 ALT 15 U/L (7-52) 11/04/18 20:15 Alkaline Phosphatase 68 U/L (34-104) 11/04/18 20:15 Troponin I < 0.01 ng/mL (0.01-0.05) L 11/04/18 20:15 Total Protein 8.1 gm/dL (6.0-8.3) 11/04/18 20:15 Albumin 3.5 gm/dL (4.2-5.5) L 11/04/18 20:15 Globulin 4.6 gm/dL 11/04/18 20:15 Albumin/Globulin Ratio 0.8 (1.0-1.8) L 11/04/18 20:15 Triglycerides 122 mg/dL (<150) 11/04/18 20:15 Cholesterol 173 mg/dL (<200) 11/04/18 20:15 LDL Cholesterol Direct 119 mg/dL (75-193) 11/04/18 20:15 HDL Cholesterol 40 mg/dL (23-92) 11/04/18 20:15 TSH 1.38 uIU/ml (0.34-5.60) 11/04/18 20:15 Salicylates < 25.0 mg/L (30.0-100.0) L 11/04/18 20:15 Acetaminophen < 10.0 ug/mL (10.0-30.0) L 11/04/18 20:15 Ethyl Alcohol < 10 mg/dL (0-10) 11/04/18 20:15 RPR NONREACTIVE (NONREACTIVE) 11/04/18 20:15 - Physical Exam Vitals and I&O: Vital Signs Temp 98.6 F 11/09/18 04:50 Pulse 85 11/09/18 04:50 Resp 18 11/09/18 07:56 BP 129/68 11/09/18 04:50 Pulse Ox 97 11/09/18 04:50 Intake & Output 11/08/18 11/09/18 11/09/18 18:59 06:59 18:59 Intake Total 1350 480 Balance 1350 480 Intake: Oral 1350 480 Other: # Voids 2 4 # Bowel Movements 1 2 Stool Characteristics Soft Soft Soft Active Medications: Current Medications Acetaminophen (Tylenol) 650 mg PO Q4HR PRN PRN Reason: Pain Stop: 01/03/19 23:27 Docusate Sodium (Colace) 100 mg PO BID [facility] Stop: 01/04/19 08:59 Last Admin: 11/09/18 16:58 Dose: Not Given Lorazepam (Ativan) 0.5 mg PO Q6HR PRN; Protocol PRN Reason: Anxiety Stop: 12/04/18 23:19 Last Admin: 11/06/18 08:56 Dose: 0.5 mg Magnesium Hydroxide (Milk Of Magnesia) 30 ml PO DAILY PRN PRN Reason: Constipation Stop: 01/03/19 23:27 Mupirocin (Bactroban Oint) 1 appl NS BID [facility] Stop: 11/11/18 17:01 Last Admin: 11/09/18 16:58 Dose: Not Given Olanzapine (Zyprexa) 5 mg PO Q12H [facility]; Protocol Stop: 01/05/19 20:59 Last Admin: 11/09/18 09:52 Dose: 5 mg Zolpidem Tartrate (Ambien) 5 mg PO HS PRN PRN Reason: Insomnia Stop: 01/03/19 23:19 Last Admin: 11/06/18 20:56 Dose: 5 mg General: alert, demented HEENT: NC/AT, PERRLA, EOMI, anicteric sclerae, throat clear Neck: Supple, No JVD, No thyromegaly, +2 carotid pulse wo bruit, No LAD Lungs: CTAB Cardiovascular: RRR, Normal S1, Normal S2, without murmur Abdomen: soft, non-tender, non-distended Extremities: clear Neurological: no change, gait stable - Procedures Procedures: Procedures Procedure Code Date GROUP PSYCHOTHERAPY 39560 04/26/15 GROUP PSYCHOTHERAPY GZHZZZZ 04/26/15 Internal Medicine Assmt/Plan - Assessment Assessment: 1.COPD. 2.DJD. 3.CONSTIPATION. 4.PSYCHOSIS - Plan Plan: CONTINUE ON CURRENT MEDICATION AND DIET.
--- NOTE | 2018-11-09 21:58 | Progress Notes ---
DATE: 11/09/2018 PSYCHOLOGY PROGRESS NOTE SUBJECTIVE: The patient is seen in his room. The patient is talking loudly to himself. When asked if the patient is talking to anyone in particular, he said I am talking to the master of the universe. The patient did not respond coherently or relevantly to the clinical questions and continued talking to himself. The patient is preoccupied with internal stimuli. Staff reports the patient had refused his medication this morning. OBJECTIVE: Mood is irritable. Affect is constricted. Thought process includes grandiose delusions. The patient is preoccupied with internal stimuli and is talking to himself. The patient's behavior is withdrawn and isolative. The patient has a tendency to be verbally aggressive with the staff. ASSESSMENT AND PLAN: The patient's psychosis persists. We provided reality orientation, differentiation and integration. We provided de-escalation. We encouraged the patient to demonstrate emotional and self-regulation by verbalizing his concerns versus acting out. We provided coping strategies for phase of life issues and for chronic severe mental illness. We provided remotivation for the patient to become compliant and stay compliant with all aspects of his care and treatment. We will follow up in 2 days, to continue the present treatment if the patient remains admitted on the unit. [facility]# [id number] MICKIE
--- NOTE | 2018-11-10 02:31 | Progress Notes ---
DATE: 11/09/2018 PSYCHIATRIC PROGRESS NOTE SUBJECTIVE: Staff was spoken to. The patient is interviewed. Mood is noted to be irritable. Affect is constricted. Insight and judgment at this time are noted to be still impaired. Impulse control is noted to be limited. The patient is pacing most of the time on the unit. The patient's sleep and appetite are noted to be improving. No side effects to the medications are noted. The patient is currently on 5 mg twice a day of the olanzapine and has been able to tolerate. ASSESSMENT: The patient is still impulsive and in view of the mood swings, it is decided to add a low dose of the Depakote. PLAN: Encouraged the patient to verbalize the concerns rather than to act out. [facility]# [id number]
[2018-11-10] MEDS: Multivitamin w/ Minerals Tab PO SCH (08:54)
--- NOTE | 2018-11-10 22:47 | Internal Medicine Prog Note ---
Internal Medicine Subjective - Subjective Service Date: 11/10/18 Patient seen and examined:: without staff (HE IS DOING WELL) Patient is:: awake, verbal, arlyn chair, confused Per staff patient has:: no adverse event Internal Medicine Objective - Results Result Diagrams: 11/04/18 20:15 11/04/18 20:15 Recent Labs: Laboratory Last Values WBC 9.1 Th/cmm (4.8-10.8) 11/04/18 20:15 RBC 4.56 Mil/cmm (3.80-5.80) 11/04/18 20:15 Hgb 13.1 gm/dL (12-16) 11/04/18 20:15 Hct 38.3 % (41.0-60) L 11/04/18 20:15 MCV 84.2 fl (80-99) 11/04/18 20:15 MCH 28.8 pg (27.0-31.0) 11/04/18 20:15 MCHC Differential 34.2 pg (28.0-36.0) 11/04/18 20:15 RDW 13.4 % (11.5-20.0) 11/04/18 20:15 Plt Count 284 Th/cmm (150-400) 11/04/18 20:15 MPV 7.6 fl 11/04/18 20:15 Neutrophils % 78.6 % (40.0-80.0) 11/04/18 20:15 Lymphocytes % 14.8 % (20.0-50.0) L 11/04/18 20:15 Monocytes % 5.6 % (2.0-10.0) 11/04/18 20:15 Eosinophils % 1.0 % (0.0-5.0) 11/04/18 20:15 Basophils % 0.0 % (0.0-2.0) 11/04/18 20:15 Sodium 136 mEq/L (136-145) 11/04/18 20:15 Potassium 4.0 mEq/L (3.5-5.1) 11/04/18 20:15 Chloride 98 mEq/L (98-107) 11/04/18 20:15 Carbon Dioxide 29.5 mEq/L (21.0-31.0) 11/04/18 20:15 Anion Gap 12.5 (7.0-16.0) 11/04/18 20:15 BUN 21 mg/dL (7-25) 11/04/18 20:15 Creatinine 0.9 mg/dL (0.7-1.3) 11/04/18 20:15 Est GFR ( Amer) > 60.0 ml/min (>90) 11/04/18 20:15 Est GFR (Non-Af Amer) > 60.0 ml/min 11/04/18 20:15 BUN/Creatinine Ratio 23.3 11/04/18 20:15 Glucose 138 mg/dL (70-105) H 11/04/18 20:15 Calcium 9.6 mg/dL (8.6-10.3) 11/04/18 20:15 Total Bilirubin 0.2 mg/dL (0.3-1.0) L 11/04/18 20:15 AST 17 U/L (13-39) 11/04/18 20:15 ALT 15 U/L (7-52) 11/04/18 20:15 Alkaline Phosphatase 68 U/L (34-104) 11/04/18 20:15 Troponin I < 0.01 ng/mL (0.01-0.05) L 11/04/18 20:15 Total Protein 8.1 gm/dL (6.0-8.3) 11/04/18 20:15 Albumin 3.5 gm/dL (4.2-5.5) L 11/04/18 20:15 Globulin 4.6 gm/dL 11/04/18 20:15 Albumin/Globulin Ratio 0.8 (1.0-1.8) L 11/04/18 20:15 Triglycerides 122 mg/dL (<150) 11/04/18 20:15 Cholesterol 173 mg/dL (<200) 11/04/18 20:15 LDL Cholesterol Direct 119 mg/dL (75-193) 11/04/18 20:15 HDL Cholesterol 40 mg/dL (23-92) 11/04/18 20:15 TSH 1.38 uIU/ml (0.34-5.60) 11/04/18 20:15 Salicylates < 25.0 mg/L (30.0-100.0) L 11/04/18 20:15 Acetaminophen < 10.0 ug/mL (10.0-30.0) L 11/04/18 20:15 Ethyl Alcohol < 10 mg/dL (0-10) 11/04/18 20:15 RPR NONREACTIVE (NONREACTIVE) 11/04/18 20:15 - Physical Exam Vitals and I&O: Vital Signs Temp 97.1 F 11/10/18 19:47 Pulse 101 11/10/18 19:47 Resp 19 11/10/18 19:47 BP 112/69 11/10/18 19:47 Pulse Ox 96 11/10/18 19:47 Intake & Output 11/10/18 11/10/18 11/11/18 06:59 18:59 06:59 Intake Total 480 240 Balance 480 240 Intake: Oral 480 240 Other: # Voids 2 2 # Bowel Movements 0 1 Active Medications: Current Medications Acetaminophen (Tylenol) 650 mg PO Q4HR PRN PRN Reason: Pain Stop: 01/03/19 23:27 Divalproex Sodium (Depakote Dr) 250 mg PO BID [facility]; Protocol Stop: 01/09/19 08:59 Last Admin: 11/10/18 17:43 Dose: 250 mg Docusate Sodium (Colace) 100 mg PO BID [facility] Stop: 01/04/19 08:59 Last Admin: 11/10/18 17:43 Dose: Not Given Lorazepam (Ativan) 0.5 mg PO Q6HR PRN; Protocol PRN Reason: Anxiety Stop: 12/04/18 23:19 Last Admin: 11/10/18 17:43 Dose: 0.5 mg Magnesium Hydroxide (Milk Of Magnesia) 30 ml PO DAILY PRN PRN Reason: Constipation Stop: 01/03/19 23:27 Mupirocin (Bactroban Oint) 1 appl NS BID [facility] Stop: 11/11/18 17:01 Last Admin: 11/10/18 08:55 Dose: 1 appl Olanzapine (Zyprexa) 5 mg PO Q12H [facility]; Protocol Stop: 01/05/19 20:59 Last Admin: 11/10/18 21:06 Dose: 5 mg Zolpidem Tartrate (Ambien) 5 mg PO HS PRN PRN Reason: Insomnia Stop: 01/03/19 23:19 Last Admin: 11/10/18 21:06 Dose: 5 mg General: alert, demented HEENT: NC/AT, PERRLA, EOMI, anicteric sclerae, throat clear Neck: Supple, No JVD, No thyromegaly, +2 carotid pulse wo bruit, No LAD Lungs: CTAB Cardiovascular: RRR, Normal S1, Normal S2, without murmur Abdomen: soft, non-tender, non-distended Extremities: clear Neurological: no change, gait stable - Procedures Procedures: Procedures Procedure Code Date GROUP PSYCHOTHERAPY 57923 04/26/15 GROUP PSYCHOTHERAPY GZHZZZZ 04/26/15 Internal Medicine Assmt/Plan - Assessment Assessment: 1.COPD. 2.DJD. 3.CONSTIPATION. 4.PSYCHOSIS - Plan Plan: CONTINUE ON CURRENT MEDICATION AND DIET.
--- NOTE | 2018-11-11 02:27 | Progress Notes ---
DATE: 11/10/2018 SUBJECTIVE: Staff was spoken to. The patient is interviewed. Mood is noted to be irritable. The patient is pacing on the unit. The patient is talking to self. No side effects to the medications are noted. The patient is compliant with the medications so far. ASSESSMENT: The patient is still psychotic. PLAN: To continue the patient with supportive therapy, encouraged the patient to verbalize the concerns rather than to act out. [facility]# [id number]
[2018-11-11] MEDS: Multivitamin w/ Minerals Tab PO SCH (09:30)
--- NOTE | 2018-11-12 00:34 | Progress Notes ---
DATE: 11/11/2018 PSYCHIATRIC PROGRESS NOTE SUBJECTIVE: Staff was spoken to. The patient is interviewed. Mood is noted to be anxious. Affect is appropriate. He is not suicidal or homicidal. Insight and judgment are noted to be improving. Impulse control is noted to be fair. Coping skills are also noted to be fair. The patient has been able to participate in the groups and no major behavioral problems are noted. ASSESSMENT: The patient is stabilizing. PLAN: To discharge the patient today for followup on outpatient basis. JOB# [id number]
--- NOTE | 2018-11-12 03:26 | Progress Notes ---
DATE: 11/11/2018 PSYCHOLOGY PROGRESS NOTE SUBJECTIVE: The patient is seen in his room. Case is discussed with staff. The patient continues to present as easily irritated and frustrated. Staff reports the patient's impulse control is poor and has continued to pace on the unit. The patient continues to respond to an inner dialogue and is talking to himself. The patient is taking his p.o. medications according to the staff. OBJECTIVE: Mood is irritable. Affect is constricted. Thought process includes grandiose delusions as well as possible auditory hallucinations; i.e., the patient is responding to internal stimuli. The patient denied any visual hallucinations. The patient has been compliant with his medication. ASSESSMENT AND PLAN: The patient's psychosis persists. We provided reality orientation, differentiation, and integration. We provided positive reinforcement for the patient to stay compliant with his care and treatment. We provided coping strategies for chronic severe mental illness. We encouraged the patient to demonstrate emotional and self-regulation by verbalizing his concerns versus acting out. We will continue to follow up to provide the present course of treatment in 2 days if the patient remains admitted on the unit. Staff indicates that the patient may be discharging today or tomorrow. JOB# [id number] MICKIE
== END 2018-11-11 18:00 | DRG 885 ==
LOC: ER 18:49 → GERO2 21:41
PROVIDERS: ADMIT Psychiatry & Neurology Psychiatry; ATTEND Psychiatry & Neurology Psychiatry
DX: F20.0 Paranoid schizophrenia (principal); I10 Essential (primary) hypertension; J44.9 Chronic obstructive pulmonary disease, unspecified; K21.9 Gastro-esophageal reflux disease without esophagitis; M19.90 Unspecified osteoarthritis, unspecified site; F29 Unspecified psychosis not due to a substance or known physiological condition; K59.09 Other constipation; F63.9 Impulse disorder, unspecified
CPT/HCPCS: 36415-UA; 80053-TC; 80061-TC; 80320-TC; 80329-TC; 83036-90; 84443-TC; 84484-TC; 85025-TC; 86592-TC; 93005; J7051